=== PATIENT | male | born 1945 | race Caucasian/White ===

== ENCOUNTER → 2020-01-14 08:05 | Outpatient (BNVA) | payer MEDICARE, BC, SELFPAY | PROVIDERS: Family Provider Nurse Practitioner; PCP Nurse Practitioner; Visit Provider Specialist | DX: F90.9 Attention-deficit hyperactivity disorder, unspecified type (principal) | CPT/HCPCS: 99213 ==

== ENCOUNTER → 2020-07-12 11:02 | Outpatient (BNVA) | payer MEDICARE, BC, SELFPAY | PROVIDERS: Family Provider Nurse Practitioner; PCP Nurse Practitioner; Visit Provider Specialist | DX: R29.90 Unspecified symptoms and signs involving the nervous system (principal); F98.8 Other specified behavioral and emotional disorders with onset usually occurring in childhood and adolescence | CPT/HCPCS: 99213 ==

== ENCOUNTER 2021-09-15 06:41 | Emergency (ER) | payer MEDICARE, BC, SELFPAY ==
[2021-09-15 06:43] VITALS: BP 185/85; PULSE 85; RESP 16; TEMP 36.7; O2SAT 96; BMI 31.7
--- NOTE | 2021-09-15 06:47 | ED_ITS ---
HPI - Fall General: Chief Complaint: Fall Stated Complaint: FALL Time Seen by Provider: 09/15/21 06:45 History of Present Illness: HPI Narrative: 68-year-old male presents to the ER via EMS after a fall at home. Patient fell yesterday morning from a height of about 3 feet he landed on the edge of an object as he came down on his left side. He has right hip pain and low back pain. There is no loss of consciousness. He is not had any hematuria. He was ambulatory immediately after the fall he comes in today because the pain is worse. Has not really taken anything for it. He does occasionally use Tylenol and meloxicam.. Is also dextromethorphan for ADHD. MD complaint: fall Onset (ago): hour(s) Fall from: from height (distance) (3 ft) Fall witnessed: no Place fall occurred: home Loss of consciousness: None Prolonged down time: no Context: tripped/slipped Location of injury: back Location of injury - extremities: Left: thigh Severity: moderate Quality: aching Associated symptoms-after fall: Denies abdominal pain, chest pain, confusion, difficulty walking, headache(s), hematuria, lightheadedness, neck pain, numbness, short of breath, vertigo or weakness Review of Systems Const: Denies: fever(s), chills, body aches, change in appetite, fatigue or malaise ENMT: Denies: throat pain, ear or mastoid pain, nasal discharge or nasal congestion Card: Denies: chest pain or lightheadedness Resp: Denies: dyspnea, productive cough or non-productive cough GI: Denies: abdominal pain : Denies: hematuria Musc: Denies: neck pain Skin/Breast: Denies: rash or pruritus Neuro: Denies: headache(s), difficulty walking, vertigo or confusion PFSH ED PFSH: Family History Other Cancer Denies family history of Diabetes CAD (coronary artery disease) Hypertension Stroke Social History Smoking and tobacco status: never smoked Alcohol intake: current Alcohol intake frequency: few times a week History of recent travel: No Physical Exam Const: COMMON NORMALS: no acute distress GENERAL APPEARANCE: cooperative and comfortable ORIENTATION/CONSCIOUSNESS: Yes awake, Yes oriented to person, Yes oriented to place and Yes oriented to time HENMT: COMMON NORMALS: normocephalic, atraumatic and hearing grossly normal bilaterally HEAD & SCALP: normocephalic and atraumatic Neck/C-Spine: COMMON NORMALS: no JVD Resp: COMMON NORMALS: normal respiratory effort, No retractions, No use of accessory muscles and clear to auscultation bilaterally AUSCULTATION: clear to auscultation bilaterally Cardio: COMMON NORMALS: no JVD, regular rate, regular rhythm and No murmurs present (Cardio) RATE: regular rate RHYTHM: regular rhythm GI: COMMON NORMALS: Soft to palpation and No hepatosplenomegaly present AUSCULTATION: Yes normoactive bowel sounds PALPATION: Yes Soft to palpation, No Tenderness to palpation present (GI), No Guarding due to palpation present (GI) and Yes No hepatosplenomegaly present Extremity: COMMON NORMALS: normal to inspection, capillary refill normal, no clubbing, cyanosis or edema, no calf tenderness and no pedal edema Neuro: SENSORIUM/ORIENTATION: Yes oriented to person, Yes oriented to place and Yes oriented to time Skin: COMMON NORMALS: no rashes or lesions noted GENERAL SKIN EXAM: no rashes or lesions noted Course Vital Signs: Vital signs: Vital Signs Temperature 98.2 F 09/15/21 07:25 Pulse Rate 90 09/15/21 07:25 Respiratory Rate 16 09/15/21 09:04 Blood Pressure 185/85 09/15/21 07:25 Pulse Oximetry 96 09/15/21 09:04 MDM - Fall MDM Narrative: Medical decision making narrative: No fractures. Patient will have assessment by PT for ambulation gait and transfer. Discharge home with Bactrim for cystitis medications given for his back pain discomfort. Lab Data: Labs: Lab Results 09/15/21 09/15/21 09/15/21 06:47 06:47 07:10 WBC 14.7 10^3/uL H 10 ^3/uL (4.0-10.0) RBC 5.13 10^6/uL 10^6 /uL (4.1-5.3) Hgb 16.3 g/dL g/dL (11.7-16.6) Hct 45.3 % % (42.0-52.0) MCV 88.3 fl fl (80-94) MCH 31.8 pg pg (28.0-34.0) MCHC 36.0 g/dL g/dL (30.0-36.0) RDW 11.8 % L % (12.1-15.1) Plt Count 188 10^3/cmm 10^3 /cmm (130-400) MPV 8.9 fL fL (7.4-10.4) Neut % (Auto) 86.6 % % Lymph % (Auto) 6.0 % % [place] % (Auto) 6.2 % % Eos % (Auto) 0.3 % % Baso % (Auto) 0.5 % % Neut # (Auto) 12.73 10^3/uL H 1 0^3/uL (1.8-7.7) Lymph # (Auto) 0.9 10^3/uL 10^3/ uL (0.8-4.8) [place] # (Auto) 0.9 10^3/uL 10^3/ uL (0.2-0.9) Eos # (Auto) 0.0 10^3/uL 10^3/ uL (0.0-0.8) Baso # (Auto) 0.1 10^3/uL 10^3/ uL (0.0-0.1) Nucleated RBC % (a uto) 0 % % Nucleated RBCs # 0.0 /100WBC /100W BC Sodium 131 mmol/L L mmol /L (136-145) Potassium 3.8 mmol/L mmol/L (3.5-5.1) Chloride 96 mmol/L L mmol/ L (98-107) Carbon Dioxide 21 mmol/L L mmol/ L (22-29) Anion Gap 17.8 (5-19) BUN 14 mg/dL mg/dL (8-23) Creatinine 0.6 mg/dL L mg/dL (0.7-1.2) GFR Calculation Not Reportable Glucose 102 mg/dL mg/dL (65-115) Calculated Osmolal ity 273 mOsm/kg L mOs m/kg (285-295) Calcium 8.5 mg/dL mg/dL (8.5-10.5) Total Bilirubin 1.2 mg/dL mg/dL (0.15-1.2) AST 23 U/L U/L (0-40) ALT 34 U/L U/L (0-41) Alkaline Phosphata se 48 IU/L IU/L (40-130) Total Protein 6.8 g/dL g/dL (6.6-8.7) Albumin 4.3 g/dL g/dL (3.5-5.2) Globulin 2.5 g/dL g/dL (1.3-4.6) Urine Color Yellow (Yellow) Urine Appearance Sl hazy (CLEAR) Urine pH 7 (5-7) Ur Specific Gravit y 1.005 (1.005-1.030) Urine Protein Neg (Negative) Urine Glucose (UA) Norm (Normal) Urine Ketones Negative (Negative) Urine Blood 2+ H (Negative) Urine Nitrate Positive H (Negative) Urine Bilirubin Neg (Negative) Urine Urobilinogen Norm mg/dL mg/dL (Negative) Ur Leukocyte Dai ase 2+ H (Negative) Urine RBC 10-15 /hpf H /hpf (0-2) Urine WBC 55-80 /hpf H /hpf (0-5) Ur Squamous Epith Cells 0-4 /hpf H /hpf (0-5) Amorphous Sediment Not Reportable Urine Bacteria 2+ /hpf H /hpf (NONE) Urine Mucus Trace /hpf /hpf Discharge Plan Discharge Patient Disposition: Home Clinical Impression: Fall, Cystitis Condition: Stable Prescriptions: New Bactrim DS 800-160 mg tablet 1 tab PO DAILY 7 Days Qty: 14 RF: 0 hydrocodone-acetaminophen 5-325 mg tablet 1 tab PO Q6H PRN (Reason: pain) Qty: 15 RF: 0 Medrol (Adriel) 4 mg tablets,dose pack See Rx Instructions .ROUTE .COMPLEX Qty: 21 RF: 0 tizanidine 4 mg capsule 4 mg PO Q8H PRN (Reason: muscle spasticity) Qty: 20 RF: 0 No Action lisinopril 20 mg tablet 20 mg PO DAILY RF: 0 hydrochlorothiazide 50 mg tablet 50 mg PO DAILY RF: 0 triamcinolone acetonide 0.1 % cream 1 applic TOPICAL TID RF: 0 hydrocortisone acetate [Anusol-HC] 25 mg suppository 25 mg [place] DAILY PRNRF: 0 alprazolam 0.5 mg tablet 0.5 mg PO DAILY RF: 0 meloxicam 15 mg tablet 15 mg PO DAILY RF: 0 acetaminophen [Tylenol 8 Hour] 650 mg tablet extended release 650 mg PO Q12H RF: 0 miconazole nitrate 2 % aerosol,spray 1 spray TOPICAL DAILY PRNRF: 0 diphenhydramine HCl [Benadryl] 25 mg capsule 25 mg PO ONCE PRNRF: 0 clotrimazole 1 % cream 1 applic TOPICAL ONCE PRNRF: 0 diosmin 300 mg tablet 500 mg PO TID RF: 0 hesperidin-diosmin 100-500 mg tablet PO RF: 0 turmeric root extract 500 mg capsule See Rx Instructions PO DAILY RF: 0 multivitamin Capsule 1 cap PO DAILY RF: 0 psyllium husk 0.4 gram capsule 24 gm PO DAILY RF: 0 wheat bran 3 gram/9.3 gram powder 16 gm PO DAILY RF: 0 bran Flakes PO RF: 0 flaxseed Powder PO RF: 0 cholecalciferol (vitamin D3) [Vitamin D3] 25 mcg (1,000 unit) capsule 25 mcg PO DAILY RF: 0 cinnamon bark [Cinnamon] 500 mg capsule See Rx Instructions PO DAILY RF: 0 omega-3 fatty acids 1,000 mg capsule 1,000 mg PO DAILY RF: 0 melatonin 3 mg capsule 3 mg PO DAILY RF: 0 dextroamphetamine-amphetamine [Adderall] 20 mg tablet 20 mg PO BID 30 Days Qty: 60 RF: 0 citalopram 20 mg tablet See Rx Instructions .ROUTE .COMPLEX Qty: 90 RF: 3 Discharge Orders: Discharge ED (Routine); Ordered 09/15/21 Ordered By: Fredy Fofana Referrals: Akilah Mcgarry APN [Primary Care Provider] - Patient Instructions: Opioid Safety Coding Level of Care Code ED Instructor Warper for Maggieg Fwd Exam Comprehensive
--- NOTE | 2021-09-15 06:52 | CTR_ITS ---
PROCEDURE INFORMATION: Exam: CT Lumbar Spine Without Contrast Exam date and time: 09/15/2021 6:52 AM Age: 76 years old Clinical indication: Low back pain; Prior surgery; Surgery date: 6+ months; Additional info: Pain/trauma TECHNIQUE: Imaging protocol: Computed tomography images of the lumbar spine without contrast. Radiation optimization: All CT scans at this facility use at least one of these dose optimization techniques: automated exposure control; mA and/or kV adjustment per patient size (includes targeted exams where dose is matched to clinical indication); or iterative reconstruction. COMPARISON: No relevant prior studies available. RADIATION DOSE METRICS: Total DLP (mGy-cm): 2420.4 FINDINGS: Vertebrae: Mild leftward lower lumbar spinal curvature. Slight L1-L2 retrolisthesis, mild-moderate spondylosis. The L1-L2 AP thecal sac dimension is 8.3 mm. Mild L3-L4 retrolisthesis, moderate spondylosis., moderate spondylosis. Asymmetric left L5-S1 moderate spondylosis. Lumbar spine vertebral body marginal osteophytes are noted at multiple levels. No acute fracture. No destructive bony process identified. Discs/Spinal canal/Neural foramina: Left L1-L2 far lateral disc protrusion with possible L1 root impingement. Left L2-L3 far lateral disc protrusion with possible L2 root impingement. Severe L2-L3 spinal stenosis with moderate annular bulging. The L2-L3 AP thecal sac dimension is 4.9 mm. Severe L3-L4 spinal stenosis. Mild left L3-L4 primary facet osteoarthritis. Severe right predominant L3-L4 and L4-L5 degenerative disc narrowing. Moderate L4-L5 spinal stenosis. Moderate bilateral L4-L5 primary facet osteoarthritis. Severe lef-S1 t neural foraminal narrowing. Moderate left L5-S1 primary facet osteoarthritis. Severe left predominant L5-S1 degenerative disc narrowing. Prominent epidural adipose at levels L2-L3 through to L5-S1 (series 602, images 26 -30). Sacrum/coccyx: 7.7 mm probable bone island right S1 sacral centrum. Vasculature: Mild aortic atherosclerotic calcification without aneurysm. The iliac arteries show mild bilateral atherosclerotic calcifications without evidence of aneurysm. Soft tissues: Unremarkable. CT/CT lumbar spine wo con* [id number] IMPRESSION: 1. Left L1-L2 and L2-L3 far lateral disc protrusions with possible L1 and L2 root impingement. 2. Moderate L1-L2 and L4-L5 spinal stenoses. 3. Severe L2-L3 and L3-L4 spinal stenoses. 4. Epidural lipomatosis contributing to multilevel spinal stenosis. 5. Neural foraminal stenoses as above. Radiation Dose CTDIVOL = (mGy): DLP = 2420.4 (mGy-cm)
--- NOTE | 2021-09-15 06:52 | XR_ITS ---
WS: [id number] Exam: XR pelvis 1-2V* [id number] Date/Time of Exam: 09/15/2021 6:52 AM Reason For Exam: pain trauma No acute pelvic fracture. DJD of the both hips as well as the SI joints. Soft tissues are unremarkabl e. Advanced DJD and levoscoliosis of the visualized lower lumbar spine. XR/XR pelvis 1-2V* [id number] IMPRESSION: 1. No acute pelvic fracture. Degenerative changes as above.
[2021-09-15 07:03] LABS: Basophils # 0.1 10^3/uL (0.0-0.1); Basophils % 0.5 %; Eosinophils % 0.3 %; Hematocrit 45.3 % (42.0-52.0); Hemoglobin 16.3 g/dL (11.7-16.6); Lymphocytes # 0.9 10^3/uL (0.8-4.8); Mean Corpuscular Hemoglobin 31.8 pg (28.0-34.0); Mean Corpuscular Volume 88.3 fl (80-94); Mean Platelet Volume 8.9 fL (7.4-10.4); Monocytes # 0.9 10^3/uL (0.2-0.9); Monocytes % 6.2 %; Neutrophils # 12.73 10^3/uL (1.8-7.7); Neutrophils % 86.6 %; Nucleated Red Blood Cells % 0 %; Platelet Count 188 10^3/cmm (130-400); Red Blood Count 5.13 10^6/uL (4.1-5.3); Red Cell Distribution Width 11.8 % (12.1-15.1); White Blood Count 14.7 10^3/uL (4.0-10.0)
[2021-09-15 07:25] VITALS: BP 185/85; PULSE 90; RESP 16; TEMP 36.8; O2SAT 95
[2021-09-15 07:36] LABS: Alanine Aminotransferase 34 U/L (0-41); Albumin Level 4.3 g/dL (3.5-5.2); Alkaline Phosphatase 48 IU/L (40-130); Anion Gap 17.8 (5-19); Aspartate Amino Transferase 23 U/L (0-40); Blood Urea Nitrogen 14 mg/dL (8-23); Calcium 8.5 mg/dL (8.5-10.5); Carbon Dioxide 21 mmol/L (22-29); Chloride 96 mmol/L (98-107); Globulin 2.5 g/dL (1.3-4.6); Glucose 102 mg/dL (65-115); Osmolality Calculated 273 mOsm/kg (285-295); Potassium 3.8 mmol/L (3.5-5.1); Sodium 131 mmol/L (136-145); Total Bilirubin 1.2 mg/dL (0.15-1.2); Total Protein 6.8 g/dL (6.6-8.7)
[2021-09-15 07:57] LABS: Urine Appearance SL Hazy (CLEAR); Urine Color Yellow (Yellow)
[2021-09-15 07:58] LABS: Add Urine Culture? Yes; Add Urine Microscopic? YES; Bacteria Urine 2+ /hpf; Bilirubin Urine Neg (Negative); Blood Urine 2+ (Negative); Glucose Urine UA Norm (Normal); Ketones Urine Negative (Negative); Leukocyte Esterase Urine 2+ (Negative); Mucus Urine TRACE /hpf; Nitrate Urine Positive (Negative); Protein Urine Neg (Negative); Specific Gravity, Urine 1.005 (1.005-1.030); Squamous Epithelial Cell Urine 0-4 /hpf (0-5); Urobilinogen Urine Norm (Negative); WBC Urine 55-80 /hpf (0-5); pH Urine 7 (5-7)
[2021-09-15] MEDS: ketorolac 30 mg/mL INJ 15 MG IVP (08:12)
--- NOTE | 2021-09-15 08:14 | PC.NURSE ---
Pt c/o right hip and leg pain, rating the pain 8/10. Dr. Fofana advised, new verbal orders entered
[2021-09-15 09:04] VITALS: RESP 16; O2SAT 96
[2021-09-15] MEDS: dexamethasone 10 mg/mL INJ IVP (09:04)
[2021-09-15] MEDS: morphine 4 mg/mL SDV 1 mL IVP (09:04)
[2021-09-15] MEDS: orphenadrine 30 mg/mL Inj 2 mL 60 MG IVP (09:05)
== END 2021-09-15 09:46 | disposition home or self-care (01) ==
PROVIDERS: Emergency Provider Family Medicine; PCP Nurse Practitioner
DX: N30.90 Cystitis, unspecified without hematuria (principal); W17.89XA Other fall from one level to another, initial encounter
CPT/HCPCS: 72131; 72170; 80053; 81001; 85025; 87077; 87086; 87186; 96374; 96375; 99284; 99291; J1100; J1885; J2270; J2360

== ENCOUNTER 2021-09-16 06:54 | Inpatient (IN) | payer MEDICARE, BC, SELFPAY ==
[2021-09-16] VITALS (20 sets, daily range): BP systolic 102–167; BP diastolic 53–88; PULSE 75–98; RESP 16–20; TEMP 36.8–37.6; O2SAT 91–97; BMI 30.8
--- NOTE | 2021-09-16 | SCC_ITS ---
Procedure Done: 1. Bilateral L4/5 laminectomy with partial facetectomies 15.6 seconds of fluoroscopic guidance, for a cumulative dose of 7.70 mGy, was provided to Dr. Houser by the radiology department. C-arm images of the lumbar spine were saved for the patient's permanent record. [facility]
--- NOTE | 2021-09-16 07:07 | ED_ITS ---
HPI - Back Pain/Injury General: Chief Complaint: Fall Stated Complaint: FALL Time Seen by Provider: 09/16/21 06:55 History of Present Illness: HPI Narrative: 76-year-old male returns emergency room via EMS complaining of back pain. He was seen yesterday CT lumbar spine is done there is a lot of chronic issues with some stenosis and disc disease but there is no fractures. He returns today after having fallen at home when he got up to go to the bathroom. He is complaining mostly of leg pain now particularly on the right leg. He also reports reported loss of sensation in the leg numbness and pain in the perineal area particularly his right testicle and right inner thigh. He had not had any fecal incontinence or urinary retention, today he is complaining of having unexpectedly lost control of his bowels overnight and not being able to urinate. He did have a cystitis yesterday and he was started on oral antibiotics. He has not used any of the hydrocodone he was prescribed yesterday for pain control he has taken the steroids and the muscle relaxer. MD elicited complaint: back pain and fall Pertinent past history: recent trauma Onset (ago): day(s) Timing: constant Severity: moderate Similar Symptoms Previously: Yes Quality: sharp Location: lumbar spine Radiation: right leg below the knee Exacerbating factors: movement and walking Relieving factors: supine Context: trauma (3 foot fall from a ladder 3 to 4 days ago) Associated symptoms: Reports difficulty walking, fecal incontinence, numbness and other (Urinary retention); Deny abdominal pain, arthralgias, chills, change in bowel habits, dysuria, fatigue, fever(s), hematuria, myalgias, nausea, syncope, tingling/numbness/burning, urinary frequency, urinary urgency, vomiting or weakness Treatments prior to arrival: other medications (Steroids and muscle relaxers) Review of Systems Const: Denies: fever(s), chills or fatigue ENMT: Denies: throat pain, ear or mastoid pain, nasal discharge or nasal congestion Card: Denies: syncope Resp: Denies: dyspnea, productive cough or non-productive cough GI: Reports: fecal incontinence; Denies: abdominal pain, nausea, vomiting or change in bowel habits : Denies: dysuria, urinary urgency or hematuria Skin/Breast: Denies: rash or pruritus Neuro: Reports: difficulty walking PFSH ED PFSH: Medical History ADHD Bone spur of foot Hypertension Surgical History H/O hernia repair umbilical Family History Other Cancer Denies family history of Diabetes CAD (coronary artery disease) Hypertension Stroke Social History Smoking and tobacco status: never smoked Alcohol intake: current Alcohol intake frequency: few times a week History of recent travel: No Physical Exam Const: COMMON NORMALS: no acute distress GENERAL APPEARANCE: cooperative and comfortable ORIENTATION/CONSCIOUSNESS: Yes awake, Yes oriented to person, Yes oriented to place and Yes oriented to time HENMT: COMMON NORMALS: normocephalic, atraumatic and hearing grossly normal bilaterally HEAD & SCALP: normocephalic and atraumatic Neck/C-Spine: COMMON NORMALS: no JVD Resp: COMMON NORMALS: normal respiratory effort, No retractions, No use of accessory muscles and clear to auscultation bilaterally AUSCULTATION: clear to auscultation bilaterally Cardio: COMMON NORMALS: no JVD, regular rate, regular rhythm and No murmurs present (Cardio) RATE: regular rate RHYTHM: regular rhythm GI: COMMON NORMALS: Soft to palpation and No hepatosplenomegaly present AUSCULTATION: Yes normoactive bowel sounds PALPATION: Yes Soft to palpation, No Tenderness to palpation present (GI), No Guarding due to palpation present (GI) and Yes No hepatosplenomegaly present Extremity: COMMON NORMALS: normal to inspection, capillary refill normal, no clubbing, cyanosis or edema, no calf tenderness and no pedal edema Neuro: SENSORIUM/ORIENTATION: Yes oriented to person, Yes oriented to place and Yes oriented to time OTHER: Diminished patellar tendon reflexes bilaterally of +1 of 4. Loss of sensation in the L4-5 nerve root distribution on the right foot compared to the left. Skin: COMMON NORMALS: no rashes or lesions noted GENERAL SKIN EXAM: no rashes or lesions noted Course 2 Vital Signs: Vital signs: Vital Signs Temperature 97.5 F L 09/23/21 07:15 Pulse Rate 60 09/23/21 07:15 Respiratory Rate 16 09/23/21 07:15 Blood Pressure 182/75 09/23/21 07:15 Pulse Oximetry 95 09/23/21 07:15 MDM - Back Pain/Injury MDM Narrative: Medical decision making narrative: MRI of the lumbar spine done. Discussed with Dr. East. We will go ahead and admit also discussed with Dr. Houser. Feel the patient does have an acute cauda equina syndrome. Discharge Plan Discharge Patient Disposition: Admitted As Inpatient Admit Provider: Nima Houser Clinical Impression: Cauda equina injury without bone injury Condition: Stable Coding Level of Care Code ED Supervisor Color Paste Mixing for Chg Fwd Exam Comprehensive
--- NOTE | 2021-09-16 07:11 | MR_ITS ---
WS: [id number] MRI LUMBAR SPINE NONCONTRAST HISTORY: saddle parasthenia COMPARISON: CT lumbar spine 09/15/2021. TECHNIQUE: Sagittal and axial multisequence imaging is submitted. Advanced degenerative disc disease and osteophytosis throughout the cervical and thoracic spine with multilevel areas of central canal stenosis in the cervical spine including C3-4, C4-5 and C5-6. Mild degenerative LEFT scoliosis lumbar spine. Severe disc space narrowing throughout the lumbar spin e with osteophytes and disc bulging and facet arthritis. No acute fracture. Conus terminates normally at L1. Mild thickening of the nerve roots at the conus medullaris. The distal tip of the conus is poorly vis ualized due to thickening of the nerve roots and increased T2 signal at the L1 level. L1-L2: Diffuse annular disc bulging and osteophytic ridging. Loss of the normal CSF. There is increas ed epidural fat posteriorly. Severe central stenosis with moderate bilateral foraminal stenosis. L2-L3: Osteophytic ridging with annular disc bulging and severe ligamentum flavum and facet arthritis . Disc and osteophyte encroachment into the central canal and subarticular recesses. Thecal sac is be ing displaced to the LEFT. Severe central, bilateral subarticular recess and moderate foraminal steno sis. L3-L4: Essentially complete effacement of CSF. Epidural fat is present posteriorly. Disc and osteophy te encroachment into the thecal sac and subarticular recesses. Severe central, bilateral subarticular recess and foraminal stenosis. L4-L5: Marked osteophytic ridging with annular disc bulging. Severe central, bilateral subarticular r ecess and foraminal stenosis. Extensive bilateral subarticular recess stenosis. L5-S1: Marked osteophytic ridging and annular disc bulging with mild ligamentum flavum and facet arth ritis. Disc is contacting and displacing the S1 nerve roots bilaterally. Mild central with moderate t o severe bilateral subarticular recess and foraminal stenosis. Postcontrast imaging is also obtained. There is significant motion artifact but no evidence for disci tis or osteomyelitis. No mass identified. There is some very mild enhancement involving the nerve prem ts in the conus. Probably representing neuritis.
[2021-09-16] MEDS: ketorolac 30 mg/mL INJ IVP (07:35)
[2021-09-16] MEDS: orphenadrine 30 mg/mL Inj 2 mL 60 MG IVP (07:35)
[2021-09-16] MEDS: morphine 4 mg/mL SDV 1 mL IVP (07:35)
[2021-09-16] MEDS: gadobenate dimeglumine 20 mL vial IV (10:47)
--- NOTE | 2021-09-16 11:25 | PC.NURSE ---
pt to MRI at 1015, pt return from MRI at 1125
--- NOTE | 2021-09-16 13:28 | ANES.PREANE2 ---
Pre-Anesthetic Assessment Pre-Anesthetic Assessment: Height/Weight: Height 1.78 m Weight 97.522 kg Temp Resp BP Pulse Ox 98.8 F 17 102/53 96 09/16/21 07:00 09/16/21 07:39 09/16/21 07:39 09/16/21 07:39 Proposed Procedure: Operation Date: 09/16/21 14:25 Proposed Procedures p Lumbar Spine Decompression(Left) - Nima Houser DO Was Beta Karissa taken within 24 hours: N/A Was Clonidine taken within 24 hours: N/A Social: Social History: No alcohol and No tobacco Exam: Pre-Anes Outpt Exam: alert, oriented x 3, clear to auscultation bilaterally and regular rate & rhythm Airway: Submandibular: WNL Cervical ROM: WNL MP: 2 Dentition: Caps Additional comments: Cordero CV/HEM: CV/HEM: HTN Musc/skel: Musc/skel: OA/DJD Anesthetic Plan: ASA status: 3E Anesthesia: General Risk of > 500 ml blood loss (7ml/kg in children): No PFSH Anesthesia PFSH: Family History Other Cancer Denies family history of Diabetes CAD (coronary artery disease) Hypertension Stroke Social History Smoking and tobacco status: never smoked Alcohol intake: current Alcohol intake frequency: few times a week History of recent travel: No Data Anesthesia Cardiac Studies: No Data to Display
[2021-09-16] MEDS: HYDROmorphone 1 mg/mL INJ 1 mL 0.5 MG IVP (14:09)
[2021-09-16] MEDS: sodium chloride 0.9% 1,000 ML 30 ML IV (14:15)
--- NOTE | 2021-09-16 14:24 | P.HP_ITS ---
Providers/Chief Complaint Primary Care Provider: Akilah Mcgarry APN Chief Complaint: FALL History of Present Illness Gómez Stevens is a 76 year old male all at home. Patient fell yesterday morning from a height of about 3 feet he landed on the edge of an object as he came down on his left side. He has right hip pain and low back pain. There is no loss of consciousness. Unable to control his bladder cant dorsiflex his ankles. Numbness in perirectal area and lateral legs Review of Systems Const: Denies: fever(s), chills or fatigue Eyes: Denies: photophobia ENMT: Denies: throat pain, ear or mastoid pain, nasal discharge or nasal congestion Card: Denies: syncope Resp: Denies: dyspnea, productive cough or non-productive cough GI: Denies: abdominal pain, nausea, vomiting, fecal incontinence or change in bowel habits : Denies: dysuria, urinary urgency or hematuria Skin/Breast: Denies: rash or pruritus Neuro: Reports: difficulty walking Medications/Allergies Home Medications Medication Instructions Recorded Confirmed Last Taken Type acetaminophen 650 mg 1,300 mg PO BEDTIME 01/14/20 09/16/21 Unknown History tablet,extended release cholecalciferol (vitamin D3) 25 25 mcg PO DAILY 01/14/20 09/16/21 09/15/21 History mcg (1,000 unit) capsule cinnamon bark 500 mg capsule 1,000 mg PO DAILY 01/14/20 09/16/21 Unknown History flaxseed See Rx Instructions .ROUTE .COMPLEX 01/14/20 09/16/21 Unknown History hesperidin-diosmin 100 mg-500 mg 1 tab PO BID 01/14/20 09/16/21 Unknown History tablet hydrochlorothiazide 50 mg tablet 50 mg PO QAM 01/14/20 09/16/21 09/16/21 05:15 History lisinopril 20 mg tablet 20 mg PO QAM 01/14/20 09/16/21 09/16/21 05:15 History meloxicam 15 mg tablet 15 mg PO QAM 01/14/20 09/16/21 09/15/21 History miconazole nitrate 2 % topical 1 spray TOPICAL DAILY PRN 01/14/20 09/16/21 Unknown History spray psyllium husk 0.4 gram capsule 24 gm PO DAILY cap 01/14/20 09/16/21 Unknown History triamcinolone acetonide 0.1 % 1 applic TOPICAL TID PRN 01/14/20 09/16/21 Unknown History topical cream wheat bran 3 gram/9.3 gram oral 16 gm PO DAILY 01/14/20 09/16/21 09/15/21 History powder hydrocodone-acetaminophen 1 tab PO Q6H PRN #15 tab 09/15/21 09/16/21 Unknown Rx methylprednisolone [Medrol (Adriel)] See Rx Instructions .ROUTE 09/15/21 09/16/21 09/16/21 Rx .COMPLEX #21 each sulfamethoxazole-trimethoprim 1 tab PO DAILY 7 Days #14 tab 09/15/21 09/16/21 09/16/21 05:15 Rx [Bactrim DS] tizanidine 4 mg PO Q8H PRN #20 cap 09/15/21 09/16/21 09/16/21 05:15 Rx bran [Oat Bran] See Rx Instructions .ROUTE .COMPLEX 09/16/21 09/16/21 Unknown History citalopram 20 mg PO BEDTIME 09/16/21 09/16/21 09/15/21 History multivitamin 1 tab PO DAILY 09/16/21 09/16/21 Unknown History oxycodone-acetaminophen [Percocet] 1 tab PO ONCE 09/16/21 09/16/21 09/16/21 History Allergies Allergy/AdvReac Type Severity Reaction Status Date / Time ciprofloxacin Allergy nausea, Verified 07/12/20 11:10 swelling cefuroxime [From Zinacef] AdvReac flushing Verified 07/12/20 11:10 hydroxyzine AdvReac muscle Verified 07/12/20 11:10 weakness latex AdvReac rash Verified 07/12/20 11:10 PFSH Acute PFSH: Family History Other Cancer Denies family history of Diabetes CAD (coronary artery disease) Hypertension Stroke Social History Smoking and tobacco status: never smoked Alcohol intake: current Alcohol intake frequency: few times a week History of recent travel: No Vitals/I&O/Wt Last Vital Signs Temp 99.3 F 09/16/21 13:30 Pulse 75 09/16/21 13:30 Resp 18 09/16/21 14:09 BP 156/78 09/16/21 13:30 Pulse Ox 94 09/16/21 14:09 Weight last 48 hrs Weight 215 lb Weight 215 lb Physical Exam Narrative: EXAM NARRATIVE: CONSTITUTIONAL: The patient is a normal appearing in no apparent distress. GENERAL: Patient in no acute distress. CARDIAC: Regular rate and rhythm. CHEST: Normal inspiratory effort, normal respiratory rate. ABDOMEN: Soft and nontender. SKIN: Clear, warm and intact. NEURO?PSYCH: The patient is alert and oriented to person, place and time. Sensorv /SILT Motor StrengthShoulder abduction C5 5/5Wrist extension C6 5/5Elbow extension C7 5/5Hand Paint Laboratory Technician C8 5/5Finger abduction T15/5 Radial/ Ulnar/ Median n intact LowerSensory (SILT)Motor StrengthHin flexion L2/3Ant/inner thigh 5/5Hip adduction L2/3 5/5Knee extension L4 Lat thigh, 5/5Toe dorsiflexion L5 5/5Ankle dorsiflexion L5/ O20Lxnqrrk flexion S1 5/5 DTRBleeps 2+Triceps 2+Brachioradialis 2+Patellar 2+Achilles 2+ unable to dorsiflex ankles MUSCULOSKELETAL: [] UPPEREXTREMITIES: The patient had full active ROM in fingers, wrist, elbow, and shoulder. The patient demonstrated ability to fully flex/extend/abduct/adduct fingers, make ok sign, cross 2nd/3rd digits, extend 1st digit fully.. Radial pulse 2+, CR<2 seconds. LOWER EXTREMITIES: Pt has full, active ROM of toes, ankle, knee, and hip. Dorsalis pedis/posterior tibialis pulses 2+, CR<2 seconds. SPINE: Skin warm, dry, intact. 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
[2021-09-16] MEDS: clindamycin 900 MG/50 ML PREMIX 100 MG IV (15:06)
--- NOTE | 2021-09-16 15:19 | P.CONIM_ITS ---
Providers/Reason For Consult Consulting Physician/Specialty*: Hospitalist service Reason for Consult*: Perioperative management Attending Physician: Nima Houser DO Primary Care Provider: Akilah Mcgarry APN History of Present Illness History of Present Illness Gómez Stevens is a 76 year old male who carries history of ADHD, hypertension without significant past surgical history presented to the hospital after sustaining a fall. Patient stating that he was working in his garage when he was trying to pull out an object on a shelf. He was on a 2 step ladder when he lost his balance fell on the ground and hit the side of the tub which was landing on the ground. He immediately started having back pain. He thought he suffered from a hip fracture. He was evaluated in the ER next day however after work-up in the ER he was discharged home. As soon as he went home he start experiencing bowel incontinence, right-sided leg weakness that prompted his visit to the ER next day. He was taken to the OR for spinal cord decompression. No perioperative complication, he will finish 1 day on steroids, will need PT evaluation Review of Systems Const: Denies: fever(s) Eyes: Denies: change in vision ENMT: Denies: throat pain Card: Denies: chest pain Resp: Denies: dyspnea GI: Denies: abdominal pain : Denies: flank pain Musc: Reports: back pain and limited range of motion Skin/Breast: Denies: striae Neuro: Reports: weakness in extremities and difficulty walking; Denies: headache(s) Psych: Denies: anxiety Endo: Denies: polyuria Venkat/Lymph: Denies: easy bruising All/Imm: Denies: urticaria Meds/Allergies Home Medications and Allergies Home Medications Medication Instructions Recorded Confirmed Last Taken Type acetaminophen 650 mg 1,300 mg PO BEDTIME 01/14/20 09/16/21 Unknown History tablet,extended release cholecalciferol (vitamin D3) 25 25 mcg PO DAILY 01/14/20 09/16/21 09/15/21 History mcg (1,000 unit) capsule cinnamon bark 500 mg capsule 1,000 mg PO DAILY 01/14/20 09/16/21 Unknown History flaxseed See Rx Instructions .ROUTE .COMPLEX 01/14/20 09/16/21 Unknown History hesperidin-diosmin 100 mg-500 mg 1 tab PO BID 01/14/20 09/16/21 Unknown History tablet hydrochlorothiazide 50 mg tablet 50 mg PO QAM 01/14/20 09/16/21 09/16/21 05:15 History lisinopril 20 mg tablet 20 mg PO QAM 01/14/20 09/16/21 09/16/21 05:15 History meloxicam 15 mg tablet 15 mg PO QAM 01/14/20 09/16/21 09/15/21 History miconazole nitrate 2 % topical 1 spray TOPICAL DAILY PRN 01/14/20 09/16/21 Unknown History spray psyllium husk 0.4 gram capsule 24 gm PO DAILY cap 01/14/20 09/16/21 Unknown History triamcinolone acetonide 0.1 % 1 applic TOPICAL TID PRN 01/14/20 09/16/21 Unknown History topical cream wheat bran 3 gram/9.3 gram oral 16 gm PO DAILY 01/14/20 09/16/21 09/15/21 History powder hydrocodone-acetaminophen 1 tab PO Q6H PRN #15 tab 09/15/21 09/16/21 Unknown Rx methylprednisolone [Medrol (Adriel)] See Rx Instructions .ROUTE 09/15/21 09/16/21 09/16/21 Rx .COMPLEX #21 each sulfamethoxazole-trimethoprim 1 tab PO DAILY 7 Days #14 tab 09/15/21 09/16/21 09/16/21 05:15 Rx [Bactrim DS] tizanidine 4 mg PO Q8H PRN #20 cap 09/15/21 09/16/21 09/16/21 05:15 Rx bran [Oat Bran] See Rx Instructions .ROUTE .COMPLEX 09/16/21 09/16/21 Unknown History citalopram 20 mg PO BEDTIME 09/16/21 09/16/21 09/15/21 History multivitamin 1 tab PO DAILY 09/16/21 09/16/21 Unknown History oxycodone-acetaminophen [Percocet] 1 tab PO ONCE 09/16/21 09/16/21 09/16/21 History Allergies Allergy/AdvReac Type Severity Reaction Status Date / Time ciprofloxacin Allergy nausea, Verified 07/12/20 11:10 swelling cefuroxime [From Zinacef] AdvReac flushing Verified 07/12/20 11:10 hydroxyzine AdvReac muscle Verified 07/12/20 11:10 weakness latex AdvReac rash Verified 07/12/20 11:10 Current Medications Current Medications Generic Name Dose Route Start Last Admin Trade Name Rafat PRN Reason Stop Dose Admin Hydromorphone HCl 0.5 mg 09/16/21 13:20 09/16/21 14:09 Hydromorphone 1 Mg/Ml Inj 1 Ml IVP 09/17/21 13:20 0.5 mg ONCE PRN Administration Pain or anxiety Sodium Chloride 1,000 mls @ 30 mls/hr 09/16/21 13:30 09/16/21 14:15 Sodium Chloride 0.9% IV 09/17/21 13:29 30 mls/hr .Q24H ISSAC Administration PFSH Acute PFSH: Medical History ADHD Bone spur of foot Hypertension Surgical History H/O hernia repair umbilical Family History Other Cancer Denies family history of Diabetes CAD (coronary artery disease) Hypertension Stroke Social History Smoking and tobacco status: never smoked Alcohol intake: current Alcohol intake frequency: few times a week History of recent travel: No Vitals/I&O/Wt Last Vital Signs Temp 99.3 F 09/16/21 13:30 Pulse 75 09/16/21 13:30 Resp 18 09/16/21 14:09 BP 156/78 09/16/21 13:30 Pulse Ox 94 09/16/21 14:09 Weight last 48 hrs Weight 97.522 kg Weight 97.522 kg Physical Exam Narrative: EXAM NARRATIVE: Postoperatively patient was doing well Martinez catheter draining urine Awake and alert Nonfocal neuro exam Able to wiggle his toes Moving upper and lower extremities No further bowel incontinence Saturating well No active shortness of breath or chest pain S1, S2 Bilateral breath sounds without audible stridor or wheezing Urinary Catheter Management^: Martinez: Cath Placed During This Visit: yes Urinary Catheter Date of Insertion: 09/16/21 Urinary Catheter Time of Insertion: 12:30 A&P Assessment and plan (1) S/P laminectomy: Status: Acute (2) Cystitis: Status: Acute (3) Fall: Status: Acute (4) Cauda equina injury without bone injury: Status: Acute Additional A&P Information Cauda equina syndrome after sustaining a fall Postop day 0 Bilateral L4/5 laminectomy with partial facetectomies No complications in the perioperative period Continue 24 hours on Decadron Patient is able to move his lower extremities, no rectal incontinence Depending on PT evaluation further plan will be decided by the primary orthopedic team Hospitalist team was consulted for management of hypertension, DVT prophylaxis as per orthopedics Regular diet Full code We will follow along Consult Attestations Medical Necessity Statement: As per orthopedics Time Spent in Patient Care: 16 - 35 minutes Coding 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
--- NOTE | 2021-09-16 16:44 | XR_ITS ---
WS: [id number] RADIOGRAPHS SPINE; 2 IMAGES HISTORY: OR PICS COMPARISON: 09/16/2021 Intraoperative imaging during spine decompression. Hardware appears to be over the L3-4 or L4-5 disc level. XR/XR lumbar spine 1V [id number] IMPRESSION: Intraoperative imaging during spine decompression.
--- NOTE | 2021-09-16 17:16 | P.OP_ITS ---
Operative Report Date of procedure: September 16, 2021 Pre-op Diagnosis: Cauda Equina Syndrome Post-op diagnosis: same Procedure Done: 1. Bilateral L4/5 laminectomy with partial facetectomies Surgeon: Nima Houser Anesthesia: General Estimated blood loss (mL): 10 Condition: stable Disposition: PACU Procedure: 1. Bilateral L4/5 laminectomy with partial facetectomies Patient is brought to the operative suite. After undergoing anesthesia they are placed in the prone position. All areas of impingement are well padded. Patient is then prepped and draped in the normal sterile fashion. A skin incision is made over the L4/5 level. This is confirmed under c-arm guidance. A series of dilators are passed and the tubular retractor is docked on the L4 lamina. A bovie is used to clear the soft tissue off the lamina and the L 4/5 facet joint. A high speed rubi is then used to perform the laminectomy and take down the medial aspect of the L 4/5 facet joint. A kerrison rongeure was then used to take down the remaining lamina and smooth the edged of the laminectomy up to the point where the ligamentum flavum attaches. Attention was then brought to the medial aspect of the facet joint. The remaining medial aspect of the superior and inferior aspect of the facet joint were taken down with the kerrison from the pedicle of L4 to L 5. The facet joint had significant hypertrophy. Attention was then brought to the Ligamentum Flavum. The ligament was taken down from the lamina of L4 to L5 and out medially to the remaining facet joint. The ligament was thick. The dura was then exposed. The dura was in good repair. The L4 nerve was then traced with a curette out the L4/5 foramen and found to be adequately decompressed. The L5 nerve was traced with a curette around the L5 pedicle. The lateral recess was opened with a kerrison helping to further decompress the L5 nerve. The tubular retractor was then tilted to the contralateral side. The bovie was used to take down the soft tissue on the spinous process. The high speed rubi was used to take down the spinous process and then the contralateral lamina of L4. The kerrison rongeur was used to take down the remaining lamina to the point where the ligamentum flavum attached and the ligamentum flavum was taken down from L4 to L5. The kerrison rongeur was then used to reach across and take down the medial aspect of the contralateral L4/5 facet joint.The currete was used to trace the contralateral L4 nerve out the L4/5 foramen to make sure it was decompressed adequatesly and the L5 was traced around the L5 pedicle. The lateral recess was opened further with the kerrison to ensure the L5 is ad equately decompressed. Wound is then irrigated copiously with saline and surgiflo is used to stop any bleeding. The tubular retractor is removed and the wound is closed with vicryl and monocryl suture. Glue is then used to protect the wound. A sterile dressing is then placed. Patient was then placed in the supine position and transferred to the PACU in stable condition.
--- NOTE | 2021-09-16 17:18 | ANE.PACU2 ---
Inpatient post-anesthesia follow up: Airway intact: Yes Vital signs: Temperature 99.3 F Pulse Rate 75 Respiratory Rate 18 Blood Pressure 156/78 Pulse Oximetry 94 Oxygen Delivery Me thod Room Air Oxygen Flow Rate Fraction of Inspir ed Oxygen Hydration adequate: Yes Nausea and vomiting: No Pain level: 2 Mental status: Baseline
[2021-09-16] MEDS: docusate sodium 100 mg Capsule PO (19:05)
[2021-09-16] MEDS: lactated ringers 1,000 ML 90 ML IV (19:06)
[2021-09-16] MEDS: dexamethasone 10 mg/mL INJ IVP (19:06)
[2021-09-16] MEDS: oxyCODONE-APAP 5-325 mg Tablet 1 TAB PO (20:55)
[2021-09-16] MEDS: citalopram 20 mg Tablet PO (20:56)
[2021-09-17] VITALS (8 sets, daily range): BP systolic 119–138; BP diastolic 56–68; PULSE 74–88; RESP 17–18; TEMP 36.2–36.8; O2SAT 90–94
[2021-09-17] MEDS: dexamethasone 10 mg/mL INJ IVP ×5 (00:04→23:46)
[2021-09-17] MEDS: HYDROcodone-acetaminophen 5-325 mg Tablet 1 TAB PO ×2 (06:12→12:26)
[2021-09-17] MEDS: lisinopril 20 mg Tablet PO (06:12)
[2021-09-17] MEDS: lactated ringers 1,000 ML 90 ML IV (06:13)
[2021-09-17] MEDS: enoxaparin 40 mg/0.4 mL Syringe SUBCUT (06:13)
--- NOTE | 2021-09-17 07:26 | P.PN_ITS ---
Subjective Subjective: Interval history: Patient reports back pain has improved. Some weakness and pain in Legs but much improved as well. Denies GOODEN,CP or SOB Vitals/I&O/Wt Last Vital Signs Temp 98.1 F 09/17/21 07:21 Pulse 83 09/17/21 07:21 Resp 18 09/17/21 07:21 BP 138/61 09/17/21 07:21 Pulse Ox 93 09/17/21 07:21 09/16/21 09/17/21 09/17/21 22:59 06:59 14:59 Intake Total 2250 / 2250 1000 / 3250 Output Total 1210 / 1210 Balance 1040 / 1040 1000 / 2040 Weight last 48 hrs Weight 215 lb Weight 215 lb Physical Exam Narrative: EXAM NARRATIVE: Patient presents alert and oriented x3 with a good general appearance normal normal affect. Mild tenderness around the incisional site with the incision appear to be C/D. No signs of erythema or drainage. 4/5 motor strength both lower extremities with weaker with dorsiflexion bilaterally. Calves are supple no medial thigh tenderness. Pulses are 1+ at the dorsalis pedis and posterior tibial region. Good capillary refill throughout appears to have good sensation with light touch both lower extremities. GI: COMMON NORMALS: Soft to palpation and non-tender PALPATION: Yes Soft to palpation Psych: COMMON NORMALS: cooperative Urinary Catheter Management^: Martinez: Cath Placed During This Visit: yes Reason for Continuing Indwelling Catheter: Other Urinary Catheter Date of Insertion: 09/16/21 Urinary Catheter Time of Insertion: 12:30 A&P Assessment and plan (1) Cauda equina injury without bone injury: Patient was inquiring about discharge but based on the incontinence that he reported on admission as well as weakness in both lower extremities I would recommend physical therapy evaluation today. He will need a walker for stability. Discussed with the nurse of discontinuing Martinez catheter but will put an order in for straight cath and bladder scan as needed if he is unable to void. Also discussed laxative of choice to help with bowel movements. En couraged SMI for pulmonary toilet. Discussed at length with him the nerve recovery is slow to become hypersensitive as that healing process unfolds. He does live with his the need to establish his level of stability prior to discharge and would not recommend discharge today. Plan will be greater than 2 days for his hospitalization. If he is not able to progress with stability, I would recommend consultation with clinical social work aide for placement to rehab prior to discharge home. Status: Acute (2) S/P laminectomy: Status: Acute Attestations Medical Necessity Statement*: Based on his cauda equina presentation and continued weakness and urinary incontinence with recommend greater than 2 days hospitalization. We will make attempts to discontinue his Martinez catheter. 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
[2021-09-17] MEDS: docusate sodium 100 mg Capsule PO ×2 (08:31→17:21)
[2021-09-17] MEDS: meloxicam 7.5 mg tablet 15 MG PO (08:31)
[2021-09-17] MEDS: hydroCHLOROthiazide 25 mg Tablet 50 MG PO (08:31)
[2021-09-17] MEDS: sulfamethoxazole-trimeth DS 160-800 mg Tablet 1 TAB PO (08:32)
[2021-09-17] MEDS: morphine 4 mg/mL SDV 1 mL IVP (17:21)
[2021-09-17] MEDS: ketorolac 30 mg/mL INJ IVP (17:22)
[2021-09-17] MEDS: ondansetron 2 mg/ML SDV 2 mL 4 MG IVP (17:22)
--- NOTE | 2021-09-17 17:34 | PM.MISC ---
Miscellaneous Note Note: No overnight events Did well with physical therapy Normotensive Patient is able to move all of his extremities Martinez catheter draining concentrated urine Awake and alert Able to move his upper and lower extremities Nonfocal neuro exam S1, S2 sinus rhythm No audible stridor or wheezing Abdomen soft Pleasant and cooperative during my evaluation Patient has remained normotensive, no fever, no postoperative complications, doing well on room air Agree with voiding trial, date of Advil physical therapy, further disposition plan as per primary orthopedic team DVT prophylaxis as per orthopedics Urine culture positive for staph aureus, this is not a common UTI microorganism, would repeat urine analysis with culture, will get blood cultures to rule out bacteremia Patient has remained afebrile, leukocytosis which could be secondary to Decadron If repeat urine culture shows staph aureus again, nidus of infection needs to be explored, hold off on MRSA antibiotics for now
[2021-09-17 20:03] LABS: Add Urine Microscopic? YES; Bilirubin Urine Neg (Negative); Blood Urine 2+ (Negative); Glucose Urine UA Norm (Normal); Ketones Urine Negative (Negative); Leukocyte Esterase Urine Negative (Negative); Nitrate Urine Negative (Negative); Protein Urine Neg (Negative); Specific Gravity, Urine 1.015 (1.005-1.030); Urine Appearance Clear (CLEAR); Urine Color Yellow (Yellow); Urobilinogen Urine Norm (Negative); pH Urine 6 (5-7)
[2021-09-17 20:05] LABS: Add Urine Culture? No; Amorphous Sediment Urine TRACE /hpf; Bacteria Urine TRACE /hpf; Mucus Urine TRACE /hpf; Squamous Epithelial Cell Urine 0-4 /hpf (0-5); WBC Urine 0-4 /hpf (0-5)
[2021-09-17 20:14] LABS: Procalcitonin 0.84 ng/mL (0-0.5)
[2021-09-17] MEDS: citalopram 20 mg Tablet PO (21:26)
[2021-09-18] VITALS: BP 129/63; PULSE 70; RESP 17; TEMP 36.9; O2SAT 95
[2021-09-18 04:00] VITALS: BP 149/71; PULSE 72; RESP 17; TEMP 36.6; O2SAT 96
[2021-09-18 05:30] LABS: Basophils % 0.1 %; Hematocrit 38.4 % (42.0-52.0); Hemoglobin 13.2 g/dL (11.7-16.6); Lymphocytes # 0.8 10^3/uL (0.8-4.8); Lymphocytes % 5.7 %; Mean Corpuscular HGB Conc 34.4 g/dL (30.0-36.0); Mean Corpuscular Hemoglobin 31.9 pg (28.0-34.0); Mean Corpuscular Volume 92.8 fl (80-94); Mean Platelet Volume 9.5 fL (7.4-10.4); Monocytes # 0.6 10^3/uL (0.2-0.9); Monocytes % 4.3 %; Neutrophils # 12.23 10^3/uL (1.8-7.7); Neutrophils % 88.6 %; Nucleated Red Blood Cells % 0 %; Platelet Count 161 10^3/cmm (130-400); Red Blood Count 4.14 10^6/uL (4.1-5.3); Red Cell Distribution Width 12.2 % (12.1-15.1); White Blood Count 13.8 10^3/uL (4.0-10.0)
[2021-09-18 05:35] LABS: Anion Gap 14.7 (5-19); Blood Urea Nitrogen 31 mg/dL (8-23); C Reactive Protein 7.3 mg/L (0.0-4.9); Carbon Dioxide 23 mmol/L (22-29); Chloride 100 mmol/L (98-107); Glucose 151 mg/dL (65-115); Osmolality Calculated 285 mOsm/kg (285-295); Potassium 4.7 mmol/L (3.5-5.1); Sodium 133 mmol/L (136-145)
[2021-09-18] MEDS: dexamethasone 10 mg/mL INJ IVP ×4 (05:36→22:19)
[2021-09-18] MEDS: lisinopril 20 mg Tablet PO (06:29)
[2021-09-18] MEDS: enoxaparin 40 mg/0.4 mL Syringe SUBCUT (06:29)
[2021-09-18 07:48] VITALS: BP 155/68; PULSE 65; RESP 17; TEMP 36.4; O2SAT 91
[2021-09-18] MEDS: docusate sodium 100 mg Capsule PO ×2 (07:59→16:43)
[2021-09-18] MEDS: HYDROcodone-acetaminophen 5-325 mg Tablet 1 TAB PO ×2 (07:59→20:59)
[2021-09-18] MEDS: sulfamethoxazole-trimeth DS 160-800 mg Tablet 1 TAB PO (07:59)
[2021-09-18] MEDS: meloxicam 7.5 mg tablet 15 MG PO (07:59)
--- NOTE | 2021-09-18 08:27 | P.PN_ITS ---
Subjective Subjective: Interval history: POD 2 Patient is up in the chair comfortable. He has been up with physical therapy yesterday with weakness in both legs with right greater than left. He has not had a BM. He is unable to void. Vitals/I&O/Wt Last Vital Signs Temp 97.5 F L 09/18/21 07:48 Pulse 65 09/18/21 07:48 Resp 17 09/18/21 07:48 BP 155/68 09/18/21 07:48 Pulse Ox 91 09/18/21 07:48 09/17/21 09/18/21 09/18/21 22:59 06:59 14:59 Intake Total 1200 / 1440 240 / 1680 Balance 1200 / -660 240 / -420 Weight last 48 hrs Weight 215 lb Physical Exam Narrative: EXAM NARRATIVE: He is alert oriented x3 he has good general appearance normal mood and normal affect. He has decreased sensation diffusely down both lower extremities he can wiggle his toes. Is weak with dorsiflexion, 4/5 bilaterally 5/5 with plantar flexion bilaterally. calves are supple no medial thigh tenderness. Incision has bloody discharge around the dressing. Dressing was changed and applied a new Silverlon dressing. Wound appears to be healing nicely with no signs of infection. Resp: COMMON NORMALS: normal respiratory effort GI: COMMON NORMALS: non-tender INSPECTION: Yes abdominal distension PALPATION: Yes Firmness to palpation present (GI) Psych: COMMON NORMALS: cooperative Urinary Catheter Management^: Martinez: Cath Placed During This Visit: yes, but has since been removed by the nurse Reason for Continuing Indwelling Catheter: Decision to DC Catheter Urinary Catheter Date of Insertion: 09/16/21 Urinary Catheter Time of Insertion: 12:30 Date Urinary Catheter Removed: 09/17/21 Time Urinary Catheter Discontinued: 13:00 Data : 09/18/21 04:50 09/18/21 04:50 Micro: Microbiology 09/18/21 04:50 Blood Culture - Preliminary Blood SPECIMEN COLLECTED 09/17/21 19:19 Blood Culture - Preliminary Blood SPECIMEN COLLECTED A&P Assessment and plan (1) Cauda equina injury without bone injury: Would recommend laxative choice with suppository and/or mag citrate to help with BM. His bladder scan showed 700 mL this a.m. so we will reinsert the Martinez catheter. He has high risk of bleeding so would not recommend anticoagulants but continue with SCDs for mechanical DVT prophylaxis. We will encourage incentive spirometry for pulmonary toilet. Will recommend consultation with social and political studies professor for placement to rehab facility. Will defer to the medical team for consideration of Flomax for his urinary retention. Status: Acute (2) Urine retention: Status: Acute Attestations Medical Necessity Statement*: No discharge today due to urine retention lack of a BM and bilateral lower extremity weakness. Will consult social and political studies professor for recommendation of rehab facility on Sunday. 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
[2021-09-18] MEDS: sennosides-docusate Tablet 1 TAB PO ×2 (11:12→16:43)
[2021-09-18] MEDS: tamsulosin 0.4 mg Capsule PO (11:12)
[2021-09-18] MEDS: bisacodyl 10 mg Supp PR (11:13)
[2021-09-18 11:42] VITALS: BP 152/71; PULSE 70; RESP 17; TEMP 36.6; O2SAT 94
[2021-09-18 15:04] VITALS: BP 166/72; PULSE 72; RESP 17; TEMP 36.6; O2SAT 94
[2021-09-18 20:00] VITALS: BP 166/79; PULSE 106; RESP 22; TEMP 36.9; O2SAT 93
[2021-09-18] MEDS: citalopram 20 mg Tablet PO (20:59)
[2021-09-19] VITALS: BP 146/68; PULSE 66; RESP 16; TEMP 36.6; O2SAT 92
[2021-09-19 04:00] VITALS: BP 153/72; PULSE 72; RESP 18; TEMP 37.1; O2SAT 92
[2021-09-19] MEDS: lisinopril 20 mg Tablet PO (05:22)
[2021-09-19] MEDS: enoxaparin 40 mg/0.4 mL Syringe SUBCUT (05:22)
[2021-09-19] MEDS: dexamethasone 10 mg/mL INJ IVP ×4 (05:22→22:23)
--- NOTE | 2021-09-19 07:11 | P.PN_ITS ---
Documented by User: CALOS Smith 09/19/21 07:17 Subjective Subjective: Interval history: POD 3 Patient resting comfortably in bed. He reports having a bowel movement yesterday. He reports ambulating with a walker but is weak on the right side. He reports a slip and fall in the restroom but does not report any increased back pain or lower extremity pain. He is inquiring about going home. He denies any fevers chills or headaches, SOB. Vitals/I&O/Wt Last Vital Signs Temp 98.8 F 09/19/21 04:00 Pulse 72 09/19/21 04:00 Resp 18 09/19/21 04:00 BP 153/72 09/19/21 04:00 Pulse Ox 92 09/19/21 04:00 09/18/21 09/19/21 09/19/21 22:59 06:59 14:59 Intake Total 120 / 840 Output Total 1200 / 1200 900 / 2100 Balance -1080 / -360 -900 / -1260 Physical Exam Narrative: EXAM NARRATIVE: Patient presents alert and oriented x3 with a good general appearance normal normal affect. Normal coordination normal stability. Mild tenderness around the incisional site with the incision appear to be healing nicely. No signs of erythema or drainage. No signs of infection. Patient denies any fevers or chills. 4/5 motor strength in right lower extremities 5/5 strength in the left lower extremity with negative straight leg raise bilaterally. Weaker with dorsiflexion on the right worse than left. Calv es are supple no medial thigh tenderness. Pulses are 2+ at the dorsalis pedis and posterior tibial region. Good capillary refill throughout normal sensation light touch both lower extremities. Urinary Catheter Management^: Martinez: Cath Placed During This Visit: yes, but has since been removed by the nurse Reason for Continuing Indwelling Catheter: Decision to DC Catheter Urinary Catheter Date of Insertion: 09/16/21 Urinary Catheter Time of Insertion: 12:30 Date Urinary Catheter Removed: 09/17/21 Time Urinary Catheter Discontinued: 13:00 Data : 09/18/21 04:50 09/18/21 04:50 Micro: Microbiology 09/18/21 04:50 Blood Culture - Preliminary Blood 09/17/21 19:19 Blood Culture - Preliminary Blood NEGATIVE TO DATE A&P Assessment and plan (1) S/P laminectomy: Following the patient's bowel movement will recommend discontinuation of the Martinez catheter. Also consider Flomax 0.4mg p.o. to help with voiding. Continue physical therapy. Will await consultation from health and social care teacher and potential rehab. Status: Acute (2) Cauda equina injury without bone injury: Status: Acute Attestations Medical Necessity Statement*: Awaiting social consultation for placement Coding Level of Care Code Acute Extracting Machine Operator for Chg Fwd Diagnoses S/P laminectomy Z98.890 Cauda equina injury without bone injury S34.3XXA Documented by User: Nima Houser DO 09/19/21 07:29 Physical Exam Urinary Catheter Management^: Martinez: Cath Placed During This Visit: no Data : 09/18/21 04:50 09/18/21 04:50 Attestations Medical Necessity Statement*: per primary team Coding Level of Care Code Acute Extracting Machine Operator for Chg Fwd Diagnoses S/P laminectomy Z98.890 Cauda equina injury without bone injury S34.3XXA
[2021-09-19 07:22] VITALS: BP 160/71; PULSE 72; RESP 18; TEMP 36.4; O2SAT 93
[2021-09-19] MEDS: vancomycin 1,500 MG/300 ML PIGGYBACK 200 MG IV (07:57)
[2021-09-19] MEDS: hydroCHLOROthiazide 25 mg Tablet 50 MG PO (08:03)
[2021-09-19] MEDS: tamsulosin 0.4 mg Capsule PO (08:03)
[2021-09-19] MEDS: HYDROcodone-acetaminophen 5-325 mg Tablet 1 TAB PO ×2 (08:03→22:28)
[2021-09-19] MEDS: sulfamethoxazole-trimeth DS 160-800 mg Tablet 1 TAB PO (08:03)
[2021-09-19] MEDS: meloxicam 7.5 mg tablet 15 MG PO (08:03)
[2021-09-19] MEDS: sennosides-docusate Tablet 1 TAB PO ×2 (08:03→17:17)
[2021-09-19] MEDS: docusate sodium 100 mg Capsule PO ×2 (08:03→17:17)
--- NOTE | 2021-09-19 11:00 | PC.SOCIAL ---
IMM Update Pg. 2 of IMM updated and reviewed with patient, who verbalized understanding. Copy provided.
[2021-09-19 12:00] VITALS: BP 142/65; PULSE 73; RESP 18; TEMP 36.4; O2SAT 92
--- NOTE | 2021-09-19 14:02 | PM.PN ---
Subjective Subjective: Interval history: Seen this morning. Patient is requesting to go home. His blood culture 1 out of 3 bottle was positive for gram-positive cocci yesterday. Urine culture was positive for staph aureus. Both samples were repeated. At this point 2 out of 3 bottles are positive for gram-positive cocci in clusters sample from admission and last night the repeat sample. He was started on vancomycin early this morning. Patient's Martinez was removed yesterday but he was continued to retain urine and therefore it was replaced. Vitals/I&O/Wt Last Vital Signs Temp 97.5 F L 09/19/21 12:00 Pulse 73 09/19/21 12:00 Resp 18 09/19/21 12:00 BP 142/65 09/19/21 12:00 Pulse Ox 92 09/19/21 12:00 09/18/21 09/19/21 09/19/21 22:59 06:59 14:59 Intake Total 120 / 840 780 / 780 Output Total 1200 / 1200 900 / 2100 600 / 600 Balance -1080 / -360 -900 / -1260 180 / 180 Physical Exam Narrative: EXAM NARRATIVE: General: Alert oriented x3, patient seen sitting up in recliner. HEENT: Normocephalic, atraumatic, EOMI, breathing comfortably. Cardio: Regular rate rhythm, normal S1-S2 Respiratory: Good bilateral air entry, no wheezes no rhonchi appreciated GI: Abdomen soft, nontender, bowel sounds + Extremities: no edema, no cyanosis Martinez catheter in place draining clear light yellow urine. Urinary Catheter Management^: Martinez: Cath Placed During This Visit: yes, but has since been removed by the nurse Reason for Continuing Indwelling Catheter: Decision to DC Catheter Urinary Catheter Date of Insertion: 09/16/21 Urinary Catheter Time of Insertion: 12:30 Date Urinary Catheter Removed: 09/17/21 Time Urinary Catheter Discontinued: 13:00 Data : 09/18/21 04:50 09/18/21 04:50 Micro: Microbiology 09/17/21 19:19 Blood Culture - Preliminary Blood 09/18/21 04:50 Blood Culture - Preliminary Blood 09/17/21 19:40 Urine Culture - Preliminary Urine Catheterized A&P Assessment and plan (1) Bacteremia: Status: Acute (2) Urine retention: Status: Acute (3) Cauda equina injury without bone injury: Status: Acute (4) Attention deficit disorder (ADD) in adult: Status: Acute (5) Hypertension: Status: Acute (6) S/P laminectomy: Status: Acute Additional A&P Information #Cauda equina syndrome with urinary retention status post bilateral L4/5 laminectomy with partial fasciotectomy's. #Urinary retention status post Martinez catheter -Postop day 3. ?Patient was able to have a bowel movement yesterday. He is ambulating with a walker but weak on the right side. He did have a fall in the restroom but did not have any increased back pain or lower extremity pain. -Physical therapy to work with the patient ?We will talk to case management regarding rehab #Gram-positive cocci clusters bacteremia #Possible discitis/osteomyelitis ?Cultures from September 17, September 18 are positive 2 out of 3 bottles for gram-positive cocci in clusters. Vancomycin has been started for this patient. There is no increased leukocytosis and patient has remained afebrile. At this point this does not seem to be a contaminant. -MRI at admission did show thickening and mild enhancement involving nerve roots from conus probably representing in the right is secondary to stenosis and compression upon the nerve root distally. Discitis or osteomyelitis or tumor identified. -We will continue vancomycin for now. #Hypertension #ADHD ?Continue home medications Full code DVT prophylaxis Low-salt diet. Attestations Medical Necessity Statement*: Greater than 48-hour stay. Blood cultures are positive. Coding Level of Care Code Acute Enrollment Management Manager for reba Nicoled Diagnoses Bacteremia R78.81 Urine retention R33.9 Cauda equina injury without bone injury S34.3XXA Attention deficit disorder (ADD) in adult F98.8 Hypertension I10 S/P laminectomy Z98.890
[2021-09-19 16:00] VITALS: BP 150/66; PULSE 69; RESP 18; TEMP 36.6; O2SAT 93
[2021-09-19 20:00] VITALS: BP 138/77; PULSE 77; RESP 17; TEMP 37.1; O2SAT 95
[2021-09-19] MEDS: citalopram 20 mg Tablet PO (20:09)
[2021-09-20] VITALS: BP 148/74; PULSE 68; RESP 17; TEMP 36.4; O2SAT 94
[2021-09-20] MEDS: vancomycin 1,500 MG/300 ML PIGGYBACK 200 MG IV ×2 (01:49→21:27)
[2021-09-20 04:00] VITALS: BP 158/71; PULSE 62; RESP 17; TEMP 36.4; O2SAT 95
[2021-09-20] MEDS: dexamethasone 10 mg/mL INJ IVP ×4 (05:09→23:18)
--- NOTE | 2021-09-20 05:13 | PC.NURSE ---
SHIFT SUMMARY Has rested well tonight. Pleasant. Did tell me this morning that he had some bad dreams and when he woke up he felt confused about surroundings and events. Did receive po Hydrocodone X1 for c/o R knee. Dressing remains intact to medial lower back. Has some continuing numbness to posterior upper legs, penis & scrotum. Good neurovascular checks otherwise. Receiving IV antibiotics. Martinez draining well and taking po well.
[2021-09-20] MEDS: lisinopril 20 mg Tablet PO (05:27)
[2021-09-20] MEDS: enoxaparin 40 mg/0.4 mL Syringe SUBCUT (05:27)
[2021-09-20 06:58] LABS: Basophils # 0.1 10^3/uL (0.0-0.1); Basophils % 0.3 %; Hematocrit 41.7 % (42.0-52.0); Hemoglobin 14.3 g/dL (11.7-16.6); Lymphocytes # 1.1 10^3/uL (0.8-4.8); Lymphocytes % 6.3 %; Mean Corpuscular HGB Conc 34.3 g/dL (30.0-36.0); Mean Corpuscular Hemoglobin 31.4 pg (28.0-34.0); Mean Corpuscular Volume 91.6 fl (80-94); Mean Platelet Volume 9.6 fL (7.4-10.4); Monocytes % 5.9 %; Neutrophils # 14.82 10^3/uL (1.8-7.7); Nucleated Red Blood Cells % 0 %; Platelet Count 193 10^3/cmm (130-400); Red Blood Count 4.55 10^6/uL (4.1-5.3); White Blood Count 17.2 10^3/uL (4.0-10.0)
[2021-09-20 07:23] LABS: Anion Gap 15.6 (5-19); Blood Urea Nitrogen 29 mg/dL (8-23); Carbon Dioxide 23 mmol/L (22-29); Chloride 99 mmol/L (98-107); Glucose 139 mg/dL (65-115); Magnesium 2.3 mg/dL (1.7-2.3); Osmolality Calculated 284 mOsm/kg (285-295); Potassium 4.6 mmol/L (3.5-5.1); Sodium 133 mmol/L (136-145)
[2021-09-20 07:46] VITALS: BP 171/72; PULSE 63; RESP 18; TEMP 36.6; O2SAT 94
[2021-09-20] MEDS: docusate sodium 100 mg Capsule PO ×2 (08:04→16:47)
[2021-09-20] MEDS: sennosides-docusate Tablet 1 TAB PO ×2 (08:04→16:48)
[2021-09-20] MEDS: tamsulosin 0.4 mg Capsule PO (08:05)
[2021-09-20] MEDS: hydroCHLOROthiazide 25 mg Tablet 50 MG PO (08:05)
[2021-09-20] MEDS: meloxicam 7.5 mg tablet 15 MG PO (08:05)
[2021-09-20] MEDS: sulfamethoxazole-trimeth DS 160-800 mg Tablet 1 TAB PO (08:05)
--- NOTE | 2021-09-20 09:03 | PM.PN ---
Documented by User: CALOS Smith 09/20/21 09:07 Subjective Subjective: Interval history: POD 4 Patient resting comfortably. Back pain has become much less. Feels he is getting stronger with mobilizing. Vitals/I&O/Wt Last Vital Signs Temp 97.8 F 09/20/21 07:46 Pulse 63 09/20/21 07:46 Resp 18 09/20/21 07:46 BP 171/72 09/20/21 07:46 Pulse Ox 94 09/20/21 07:46 09/19/21 09/20/21 09/20/21 22:59 06:59 14:59 Intake Total 100 / 1120 500 / 1620 Output Total 850 / 1450 1175 / 2625 Balance -750 / -330 -675 / -1005 Physical Exam Narrative: EXAM NARRATIVE: Patient presents alert and oriented x3 with a good general appearance normal normal affect. Mild tenderness around the incisional site with the incision appears c/d. No signs of erythema or drainage. No signs of infection. Patient denies any fevers or chills. 4/5 motor strength in RLE lower extremity with 5/5 on LLE with negative straight leg raise bilaterally. Calves are supple no medial thigh tenderness. Pulses are 1+ at the dorsalis pedis and posterior tibial region. Good capillary refill throughout normal sensation light touch both lower extremities. Urinary Catheter Management^: Martinez: Cath Placed During This Visit: yes, but has since been removed by the nurse Reason for Continuing Indwelling Catheter: Decision to DC Catheter Urinary Catheter Date of Insertion: 09/16/21 Urinary Catheter Time of Insertion: 12:30 Date Urinary Catheter Removed: 09/17/21 Time Urinary Catheter Discontinued: 13:00 Data : 09/20/21 06:27 09/20/21 06:27 Micro: Microbiology 09/17/21 19:19 Blood Culture - Preliminary Blood 09/18/21 04:50 Blood Culture - Preliminary Blood 09/17/21 19:40 Urine Culture - Preliminary Urine Catheterized A&P Assessment and plan (1) S/P laminectomy: Continue to mobilize with physical therapy. Continue incentive spirometry for pulmonary toilet. We will have him follow-up in 1 week in the office for wound check. Status: Acute Attestations Medical Necessity Statement*: defer to Medical Team Coding Level of Care Code Acute Boilers Inspector for Chg Fwd Diagnoses S/P laminectomy Z98.890 Documented by User: Nima Houser DO 09/20/21 11:15 Physical Exam Urinary Catheter Management^: Martinez: Cath Placed During This Visit: no Data : 09/20/21 06:27 09/20/21 06:27 A&P Assessment and plan (1) S/P laminectomy: discussed with Hospitalist they will take over as primary. Will continue to follow. Status: Acute Coding Level of Care Code Acute Boilers Inspector for Chg Fwd Diagnoses S/P laminectomy Z98.890
[2021-09-20 11:30] VITALS: BP 130/67; PULSE 90; RESP 18; TEMP 36.5; O2SAT 95
--- NOTE | 2021-09-20 12:50 | MR_ITS ---
NOTE: Report was unsigned for reason: Order was edited. Original Signature date and time was: 09/16/2021 1145 AM MRI LUMBAR SPINE WITHOUT AND WITH CONTRAST HISTORY: saddle parasthenia COMPARISON: CT lumbar spine 09/15/2021. TECHNIQUE: Sagittal and axial multisequence imaging is submitted. CONTRAST: Multihance 20 ml Advanced degenerative disc disease and osteophytosis throughout the cervical and thoracic spine with multilevel areas of central canal stenosis in the cervical spine including C3-4, C4-5 and C5-6. Mild degenerative LEFT scoliosis lumbar spine. Severe disc space narrowing throughout the lumbar spine with osteophytes and disc bulging and facet arthritis. No acute fracture. Conus terminates normally at L1. Mild thickening of the nerve roots at the conus medullaris. The distal tip of the conus is poorly visualized due to thickening of the nerve roots and increased T2 signal at the L1 level. L1-L2: Diffuse annular disc bulging and osteophytic ridging. Loss of the normal CSF. There is increased epidural fat posteriorly. Severe central stenosis with moderate bilateral foraminal stenosis. L2-L3: Osteophytic ridging with annular disc bulging and severe ligamentum flavum and facet arthritis. Disc and osteophyte encroachment into the central canal and subarticular recesses. Thecal sac is being displaced to the LEFT. Severe central, bilateral subarticular recess and moderate foraminal stenosis. L3-L4: Essentially complete effacement of CSF. Epidural fat is present posteriorly. Disc and osteophyte encroachment into the thecal sac and subarticular recesses. Severe central, bilateral subarticular recess and foraminal stenosis. L4-L5: Marked osteophytic ridging with annular disc bulging. Severe central, bilateral subarticular recess and foraminal stenosis. Extensive bilateral subarticular recess stenosis. L5-S1: Marked osteophytic ridging and annular disc bulging with mild ligamentum flavum and facet arthritis. Disc is contacting and displacing the S1 nerve roots bilaterally. Mild central with moderate to severe bilateral subarticular recess and foraminal stenosis. Postcontrast imaging is also obtained. There is significant motion artifact but no evidence for discitis or osteomyelitis. No mass identified. There is some very mild enhancement involving the nerve roots in the conus. Probably representing neuritis. IMPRESSION: 1. Severe multilevel central, subarticular recess and foraminal stenosis. 2. Significant central, subarticular recess and foraminal stenosis from L1-2 to L5-S1. Most severe disease stenosis at L2-3, L3-4 and L4-5. 3. Thickening and mild enhancement involving the nerve roots from the conus probably representing in the RIGHT is secondary to the stenosis and compression upon the nerve roots distally. Discitis or osteomyelitis or tumor identified. [facility] MR/MR lumbar spine wo/w con [id number] IMPRESSION: 1. Severe multilevel central, subarticular recess and foraminal stenosis. 2. Significant central, subarticular recess and foraminal stenosis from L1-2 to L5-S1. Most severe disease stenosis at L2-3, L3-4 and L4-5. 3. Thickening and mild enhancement involving the nerve roots from the conus pr obably representing in the RIGHT is secondary to the stenosis and compression u lizbeth the nerve roots distally. Discitis or osteomyelitis or tumor identified.
--- NOTE | 2021-09-20 15:24 | P.PN_ITS ---
Subjective Subjective: Interval history: Seen this morning. Patient blood cultures are positive for gram-positive cocci in clusters. He has been started on vancomycin IV. I discussed with the patient regarding his results and he was quite receptive and understanding. All questions answered. Patient however feels well and does not have any symptoms. Denies of back pain, respiratory complai nts. Has been afebrile overnight. WBC count has jumped to 17.2. Vitals/I&O/Wt Last Vital Signs Temp 97.7 F 09/20/21 11:30 Pulse 90 09/20/21 11:30 Resp 18 09/20/21 11:30 BP 130/67 09/20/21 11:30 Pulse Ox 95 09/20/21 11:30 09/20/21 09/20/21 09/20/21 06:59 14:59 22:59 Intake Total 500 / 1620 240 / 240 Output Total 1175 / 2625 700 / 700 Balance -675 / -1005 -460 / -460 Physical Exam Narrative: EXAM NARRATIVE: General: Alert oriented x3, patient seen sitting up in recliner. HEENT: Normocephalic, atraumatic, EOMI, breathing comfortably. Cardio: Regular rate rhythm, normal S1-S2 Respiratory: Good bilateral air entry, no wheezes no rhonchi appreciated GI: Abdomen soft, nontender, bowel sounds + Extremities: no edema, no cyanosis Martinez catheter in place draining clear light yellow urine. Urinary Catheter Management^: Martinez: Cath Placed During This Visit: yes, but has since been removed by the nurse Reason for Continuing Indwelling Catheter: Decision to DC Catheter Urinary Catheter Date of Insertion: 09/16/21 Urinary Catheter Time of Insertion: 12:30 Date Urinary Catheter Removed: 09/17/21 Time Urinary Catheter Discontinued: 13:00 Data : 09/20/21 06:27 09/20/21 06:27 Micro: Microbiology 09/17/21 19:19 Blood Culture - Preliminary Blood Staphylococcus aureus 09/18/21 04:50 Blood Culture - Preliminary Blood Staphylococcus aureus 09/17/21 19:40 Urine Culture - Final Urine Catheterized 09/19/21 12:10 Urine Culture - Preliminary Urine Catheterized A&P Assessment and plan (1) Bacteremia: Status: Acute (2) Urine retention: Status: Acute (3) Cauda equina injury without bone injury: Status: Acute (4) Attention deficit disorder (ADD) in adult: Status: Acute (5) Hypertension: Status: Acute (6) S/P laminectomy: Status: Acute Additional A&P Information #Cauda equina syndrome with urinary retention status post bilateral L4/5 laminectomy with partial fasciotectomy's. #Urinary retention status post Martinez catheter -Postop day 3. ?Patient was able to have a bowel movement yesterday. He is ambulating with a walker but weak on the right side. He did have a fall in the restroom but did not have any increased back pain or lower extremity pain. -Physical therapy to work with the patient ?We will talk to case management regarding rehab ?Patient did see Dr. Salinas in his office in 2 weeks for suture removal. #Gram-positive cocci clusters bacteremia #Possible discitis/osteomyelitis ?Cultures from September 17, September 18 are positive 2 out of 3 bottles for gram-positive cocci in clusters. Vancomycin has been started for this patient. There is no increased leukocytosis and patient has remained afebrile. At this point this does not seem to be a contaminant. -MRI at admission did show thickening and mild enhancement involving nerve roots from conus probably representing in the right is secondary to stenosis and compression upon the nerve root distally. Discitis or osteomyelitis or tumor identified. -We will continue vancomycin for now. Discussed with infectious disease specialist Dr. Valdez over the phone. We will wait for final culture sensitivity to decide further course. Patient will also potentially need repeat imaging to find source. We will continue to repeat blood cultures every 48 hours. Continue vancomycin for now. Eventually patient will need a PICC line and 6 weeks of IV antibiotics pending culture sensitivity results #Hypertension #ADHD ?Continue home medications Full code DVT prophylaxis Low-salt diet. Patient updated in detail and he understands the plan and is okay with staying in the hospital. Attestations Medical Necessity Statement*: Greater than 72 hours expected. Coding Level of Care Code Acute Genetics Nurse for Maggieg Fwd Diagnoses Bacteremia R78.81 Urine retention R33.9 Cauda equina injury without bone injury S34.3XXA Attention deficit disorder (ADD) in adult F98.8 Hypertension I10 S/P laminectomy Z98.890
[2021-09-20 15:44] VITALS: BP 161/80; PULSE 66; RESP 18; TEMP 36.9; O2SAT 94
[2021-09-20 20:00] VITALS: BP 143/65; PULSE 74; RESP 21; TEMP 36.7; O2SAT 95
[2021-09-20] MEDS: citalopram 20 mg Tablet PO (21:27)
[2021-09-20] MEDS: ketorolac 30 mg/mL INJ IVP (23:17)
[2021-09-21] VITALS (7 sets, daily range): BP systolic 122–164; BP diastolic 57–76; PULSE 59–88; RESP 16–22; TEMP 36.4–37.1; O2SAT 94–96
[2021-09-21] MEDS: dexamethasone 10 mg/mL INJ IVP ×4 (05:31→22:21)
[2021-09-21] MEDS: enoxaparin 40 mg/0.4 mL Syringe SUBCUT (05:31)
[2021-09-21] MEDS: lisinopril 20 mg Tablet PO (05:31)
[2021-09-21 06:25] LABS: Basophils % 0.2 %; Hematocrit 41.7 % (42.0-52.0); Hemoglobin 14.2 g/dL (11.7-16.6); Lymphocytes # 1.5 10^3/uL (0.8-4.8); Lymphocytes % 10.1 %; Mean Corpuscular HGB Conc 34.1 g/dL (30.0-36.0); Mean Corpuscular Hemoglobin 31.3 pg (28.0-34.0); Mean Corpuscular Volume 91.9 fl (80-94); Mean Platelet Volume 9.8 fL (7.4-10.4); Monocytes # 0.9 10^3/uL (0.2-0.9); Monocytes % 6.2 %; Neutrophils # 12.11 10^3/uL (1.8-7.7); Neutrophils % 80.3 %; Nucleated Red Blood Cells % 0 %; Platelet Count 198 10^3/cmm (130-400); Red Blood Count 4.54 10^6/uL (4.1-5.3); Red Cell Distribution Width 11.9 % (12.1-15.1); White Blood Count 15.1 10^3/uL (4.0-10.0)
[2021-09-21 06:52] LABS: Anion Gap 14.1 (5-19); Blood Urea Nitrogen 32 mg/dL (8-23); Calcium 8.1 mg/dL (8.5-10.5); Carbon Dioxide 24 mmol/L (22-29); Chloride 97 mmol/L (98-107); Glucose 129 mg/dL (65-115); Magnesium 2.5 mg/dL (1.7-2.3); Osmolality Calculated 279 mOsm/kg (285-295); Potassium 5.1 mmol/L (3.5-5.1); Sodium 130 mmol/L (136-145)
--- NOTE | 2021-09-21 07:53 | P.PN_ITS ---
Subjective Subjective: Interval history: resting comfortably Vitals/I&O/Wt Last Vital Signs Temp 98.1 F 09/21/21 07:46 Pulse 59 L 09/21/21 07:46 Resp 18 09/21/21 07:46 BP 157/76 09/21/21 07:46 Pulse Ox 96 09/21/21 07:46 09/20/21 09/21/21 09/21/21 22:59 06:59 14:59 Intake Total 940 / 1180 Output Total 1450 / 2150 370 / 2520 Balance -1450 / -1910 570 / -1340 Physical Exam Narrative: EXAM NARRATIVE: resting in bed Urinary Catheter Management^: Martinez: Cath Placed During This Visit: yes, but has since been removed by the nurse Reason for Continuing Indwelling Catheter: Decision to DC Catheter Urinary Catheter Date of Insertion: 09/16/21 Urinary Catheter Time of Insertion: 12:30 Date Urinary Catheter Removed: 09/17/21 Time Urinary Catheter Discontinued: 13:00 Data : 09/21/21 05:15 09/21/21 05:15 Micro: Microbiology 09/21/21 05:15 Blood Culture - Preliminary Blood SPECIMEN COLLECTED 09/21/21 05:15 Blood Culture - Preliminary Blood SPECIMEN COLLECTED 09/20/21 17:58 Blood Culture - Preliminary Blood SPECIMEN COLLECTED 09/20/21 17:54 Blood Culture - Preliminary Blood SPECIMEN COLLECTED 09/17/21 19:19 Blood Culture - Preliminary Blood Staphylococcus aureus 09/18/21 04:50 Blood Culture - Preliminary Blood Staphylococcus aureus 09/17/21 19:40 Urine Culture - Final Urine Catheterized 09/19/21 12:10 Urine Culture - Preliminary Urine Catheterized A&P Assessment and plan (1) S/P laminectomy: POD#5 lumbar decompression WBAT Defer to Hospitalist for Abx and current tx Status: Acute Attestations Medical Necessity Statement*: per primary service Coding Level of Care Code Acute Planishing Press Operator for Chg Fwd Diagnoses S/P laminectomy Z98.890
[2021-09-21] MEDS: sulfamethoxazole-trimeth DS 160-800 mg Tablet 1 TAB PO (07:56)
[2021-09-21] MEDS: docusate sodium 100 mg Capsule PO ×2 (07:56→16:47)
[2021-09-21] MEDS: meloxicam 7.5 mg tablet 15 MG PO (07:56)
[2021-09-21] MEDS: sennosides-docusate Tablet 1 TAB PO ×2 (07:56→16:48)
[2021-09-21] MEDS: tamsulosin 0.4 mg Capsule PO (07:57)
--- NOTE | 2021-09-21 10:34 | PC.CHAP ---
Pastoral Care Encounter/Spiritual Assessment Type of Contact [] Declined lockstitch shoulder joiner visit [] Patient/Family/Request visit [] Outpatient visit [] Follow-up visit [] Physician referral [] Code/Alert x[x] Routine visit [] Staff referral [] Actively dying [] Patient sleeping [] Family support [] [] Out of room [] Palliative care [] [] Receiving care in room [] Pre-surgical visit [] Trauma [] Long length of stay [] ICU visit [] Other: Relational/Emotional Strength [x] Patient feels connected with others/family/visitors/staff [] Distress [] Loneliness/isolation [] Abandonment Spirituality of Patient [x] Person of Tanisha [] Attends Orthodoxy of their Tanisha [x] Believes in Prayer [] Reads Bible or Jew materials [] There are Spiritual issues to be addressed Head Worker Interventions xx[]x Prayer [x] Active listening [x] Non-anxious presence [] Spiritual/emotional support [] Crisis/trauma care [] Spiritual counseling [] Bereavement support [] Provided bereavement packet [] Provided Bible/devotional materials [] Provided toy/stuffed animal, coloring book to patient or family member [] Provided Communion [] Anointing/[place] [] Salvation [x] Completed spiritual assessment [] Other: Impact on Illness or Injury [] Angry [] Fearful [] Anxious [] Often cries [] Exhaustion [] Unable to work [] Unable to attend lutheran [] Unable to walk/stand [] Unable to read [] Unable to drive [] Unable to eat/drink [] Unable to sleep [] Unable to be with family [] Patient intubated [] Other: Summary Time spent with patient 5 min
--- NOTE | 2021-09-21 11:40 | PC.SOCIAL ---
IMM Updated Updated pt on IMM. No questions voiced. Provided pt a copy. Initialed, dated, & timed copy in chart.
[2021-09-21 14:22] LABS: Vancomycin Trough 10.3 ug/mL (10-15)
[2021-09-21] MEDS: vancomycin 1,500 MG/300 ML PIGGYBACK 200 MG IV (14:44)
--- NOTE | 2021-09-21 16:01 | PM.PN ---
Subjective Subjective: Interval history: Blood cultures continue to be positive. Final sensitivity culture pending. Organism identified as staph aureus. Sensitivities pending. Patient is doing okay and does not have any complaints to offer this morning. He states however he feels he is stuck in the hospital. He does understand the reasoning of still being hospitalized however. Vitals/I&O/Wt Last Vital Signs Temp 97.8 F 09/21/21 15:38 Pulse 76 09/21/21 15:38 Resp 18 09/21/21 15:38 BP 141/65 09/21/21 15:38 Pulse Ox 95 09/21/21 15:38 09/21/21 09/21/21 09/21/21 06:59 14:59 22:59 Intake Total 940 / 1180 720 / 720 Output Total 370 / 2520 Balance 570 / -1340 720 / 720 Physical Exam Narrative: EXAM NARRATIVE: General: Alert oriented x3, patient seen sitting up in recliner. HEENT: Normocephalic, atraumatic, EOMI, breathing comfortably. Cardio: Regular rate rhythm, normal S1-S2 Respiratory: Good bilateral air entry, no wheezes no rhonchi appreciated GI: Abdomen soft, nontender, bowel sounds + Extremities: no edema, no cyanosis Martinez catheter in place draining clear light yellow urine. Urinary Catheter Management^: Martinez: Cath Placed During This Visit: yes, but has since been removed by the nurse Reason for Continuing Indwelling Catheter: Decision to DC Catheter Urinary Catheter Date of Insertion: 09/16/21 Urinary Catheter Time of Insertion: 12:30 Date Urinary Catheter Removed: 09/17/21 Time Urinary Catheter Discontinued: 13:00 Data : 09/21/21 05:15 09/21/21 05:15 Micro: Microbiology 09/17/21 19:19 Blood Culture - Preliminary Blood Staphylococcus aureus 09/18/21 04:50 Blood Culture - Preliminary Blood Staphylococcus aureus 09/19/21 12:10 Urine Culture - Final Urine Catheterized 09/21/21 05:15 Blood Culture - Preliminary Blood SPECIMEN COLLECTED 09/21/21 05:15 Blood Culture - Preliminary Blood SPECIMEN COLLECTED 09/20/21 17:58 Blood Culture - Preliminary Blood SPECIMEN COLLECTED 09/20/21 17:54 Blood Culture - Preliminary Blood SPECIMEN COLLECTED A&P Assessment and plan (1) Bacteremia: Status: Acute (2) Urine retention: Status: Acute (3) Cauda equina injury without bone injury: Status: Acute (4) Attention deficit disorder (ADD) in adult: Status: Acute (5) Hypertension: Status: Acute (6) S/P laminectomy: Status: Acute Additional A&P Information #Cauda equina syndrome with urinary retention status post bilateral L4/5 laminectomy with partial fasciotectomy's. #Urinary retention status post Martinez catheter -Postop day 3. ?Patient was able to have a bowel movement yesterday. He is ambulating with a walker but weak on the right side. He did have a fall in the restroom but did not have any increased back pain or lower extremity pain. -Physical therapy to work with the patient ?We will talk to case management regarding rehab ?Patient did see Dr. Salinas in his office in 2 weeks for suture removal. #Gram-positive cocci clusters bacteremia #Possible discitis/osteomyelitis ?Cultures from September 17, September 18 are positive 2 out of 3 bottles for gram-positive cocci in clusters. Vancomycin has been started for this patient. There is no increased leukocytosis and patient has remained afebrile. At this point this does not seem to be a contaminant. -MRI at admission did show thickening and mild enhancement involving nerve roots from conus probably representing in the right is secondary to stenosis and compression upon the nerve root distally. Discitis or osteomyelitis or tumor identified. -We will continue vancomycin for now. Discussed with infectious disease specialist Dr. Valdez over the phone. We will wait for final culture sensitivity to decide further course. Patient will also potentially need repeat imaging to find source. We will continue to repeat blood cultures every 48 hours. Continue vancomycin for now. Eventually patient will need a PICC line and 6 weeks of IV antibiotics pending culture sensitivity results #Hypertension #ADHD ?Continue home medications Full code DVT prophylaxis Low-salt diet. Patient updated in detail and he understands the plan and is okay with staying in the hospital. Attestations Medical Necessity Statement*: Greater than 48 hours day. Coding Level of Care Code Acute Screen Printing Supervisor for g Fwd Diagnoses Bacteremia R78.81 Urine retention R33.9 Cauda equina injury without bone injury S34.3XXA Attention deficit disorder (ADD) in adult F98.8 Hypertension I10 S/P laminectomy Z98.890
[2021-09-21] MEDS: citalopram 20 mg Tablet PO (22:00)
[2021-09-21] MEDS: ketorolac 30 mg/mL INJ IVP (22:12)
[2021-09-22] VITALS: BP 162/72; PULSE 59; RESP 17; TEMP 36.4; O2SAT 96
[2021-09-22 04:00] VITALS: BP 178/73; PULSE 58; RESP 18; TEMP 36.5; O2SAT 96
[2021-09-22] MEDS: dexamethasone 10 mg/mL INJ IVP ×4 (05:26→22:13)
[2021-09-22 05:34] LABS: Basophils # 0.1 10^3/uL (0.0-0.1); Basophils % 0.3 %; Hematocrit 42.3 % (42.0-52.0); Hemoglobin 14.5 g/dL (11.7-16.6); Lymphocytes # 1.6 10^3/uL (0.8-4.8); Lymphocytes % 9.5 %; Mean Corpuscular HGB Conc 34.3 g/dL (30.0-36.0); Mean Corpuscular Hemoglobin 31.3 pg (28.0-34.0); Mean Corpuscular Volume 91.4 fl (80-94); Mean Platelet Volume 9.4 fL (7.4-10.4); Monocytes # 0.9 10^3/uL (0.2-0.9); Monocytes % 5.5 %; Neutrophils # 13.11 10^3/uL (1.8-7.7); Neutrophils % 79.9 %; Nucleated Red Blood Cells % 0 %; Platelet Count 202 10^3/cmm (130-400); Red Blood Count 4.63 10^6/uL (4.1-5.3); Red Cell Distribution Width 11.7 % (12.1-15.1); White Blood Count 16.4 10^3/uL (4.0-10.0)
[2021-09-22 06:06] LABS: Blood Urea Nitrogen 38 mg/dL (8-23); Calcium 8.2 mg/dL (8.5-10.5); Carbon Dioxide 23 mmol/L (22-29); Chloride 97 mmol/L (98-107); Glucose 130 mg/dL (65-115); Magnesium 2.5 mg/dL (1.7-2.3); Osmolality Calculated 281 mOsm/kg (285-295); Sodium 130 mmol/L (136-145)
[2021-09-22] MEDS: lisinopril 20 mg Tablet PO (06:30)
[2021-09-22] MEDS: enoxaparin 40 mg/0.4 mL Syringe SUBCUT (06:30)
[2021-09-22 07:29] VITALS: BP 191/76; PULSE 60; RESP 18; TEMP 36.4; O2SAT 96
[2021-09-22] MEDS: vancomycin 1,500 MG/300 ML PIGGYBACK 200 MG IV (09:52)
[2021-09-22] MEDS: sennosides-docusate Tablet 1 TAB PO ×2 (09:57→17:17)
[2021-09-22] MEDS: docusate sodium 100 mg Capsule PO ×2 (09:57→17:17)
[2021-09-22] MEDS: hydroCHLOROthiazide 25 mg Tablet 50 MG PO (09:57)
[2021-09-22] MEDS: tamsulosin 0.4 mg Capsule PO (09:57)
[2021-09-22] MEDS: sulfamethoxazole-trimeth DS 160-800 mg Tablet 1 TAB PO (09:57)
[2021-09-22] MEDS: meloxicam 7.5 mg tablet 15 MG PO (09:57)
--- NOTE | 2021-09-22 11:23 | P.PN_ITS ---
Subjective Subjective: Interval history: Seen this morning seen this morning. Afebrile overnight. Does not offer any complaints this morning. Vitals/I&O/Wt Last Vital Signs Temp 97.5 F L 09/22/21 07:29 Pulse 60 09/22/21 07:29 Resp 18 09/22/21 07:29 BP 191/76 09/22/21 07:29 Pulse Ox 96 09/22/21 07:29 09/21/21 09/22/21 09/22/21 22:59 06:59 14:59 Intake Total 1740 / 2460 200 / 2660 360 / 360 Output Total 150 / 150 800 / 950 Balance 1590 / 2310 -600 / 1710 360 / 360 Physical Exam Narrative: EXAM NARRATIVE: General: Alert oriented x3, patient seen sitting up in recliner. HEENT: Normocephalic, atraumatic, EOMI, breathing comfortably. Cardio: Regular rate rhythm, normal S1-S2 Respiratory: Good bilateral air entry, no wheezes no rhonchi appreciated GI: Abdomen soft, nontender, bowel sounds + Extremities: no edema, no cyanosis Martinez catheter in place draining clear light yellow urine. Urinary Catheter Management^: Martinez: Cath Placed During This Visit: yes, but has since been removed by the nurse Reason for Continuing Indwelling Catheter: Decision to DC Catheter Urinary Catheter Date of Insertion: 09/16/21 Urinary Catheter Time of Insertion: 12:30 Date Urinary Catheter Removed: 09/17/21 Time Urinary Catheter Discontinued: 13:00 Data : 09/22/21 05:05 09/22/21 05:05 Micro: Microbiology 09/21/21 05:15 Blood Culture - Preliminary Blood NEGATIVE TO DATE 09/21/21 05:15 Blood Culture - Preliminary Blood NEGATIVE TO DATE 09/20/21 17:58 Blood Culture - Preliminary Blood NEGATIVE TO DATE 09/20/21 17:54 Blood Culture - Preliminary Blood NEGATIVE TO DATE 09/17/21 19:19 Blood Culture - Preliminary Blood Staphylococcus aureus 09/18/21 04:50 Blood Culture - Preliminary Blood Staphylococcus aureus 09/19/21 12:10 Urine Culture - Final Urine Catheterized A&P Assessment and plan (1) Bacteremia: Status: Acute (2) Urine retention: Status: Acute (3) Cauda equina injury without bone injury: Status: Acute (4) Attention deficit disorder (ADD) in adult: Status: Acute (5) Hypertension: Status: Acute (6) S/P laminectomy: Status: Acute Additional A&P Information #Cauda equina syndrome with urinary retention status post bilateral L4/5 laminectomy with partial fasciotectomy's. #Urinary retention status post Martinez catheter ?Patient was able to have a bowel movement yesterday. He is ambulating with a walker but weak on the right side. He did have a fall in the restroom but did not have any increased back pain or lower extremity pain. -Physical therapy to work with the patient ?We will talk to case management regarding rehab ?Patient did see Dr. Salinas in his office in 2 weeks for suture removal. #Gram-positive cocci clusters bacteremia #Possible discitis/osteomyelitis ?Cultures from September 17, September 18 are positive 2 out of 3 bottles for gra m-positive cocci in clusters. Vancomycin has been started for this patient. There is no increased leukocytosis and patient has remained afebrile. At this point this does not seem to be a contaminant. -MRI at admission did show thickening and mild enhancement involving nerve roots from conus probably representing in the right is secondary to stenosis and compression upon the nerve root distally. Discitis or osteomyelitis or tumor identified. -We will continue vancomycin for now. Discussed with infectious disease specialist Dr. Valdez over the phone. We will wait for final culture sensit ivity to decide further course. Patient will also potentially need repeat imaging to find source. We will continue to repeat blood cultures every 48 hours. Eventually patient will need a PICC line and 6 weeks of IV antibiotics pending culture sensitivity results. Sensitivity is back. We will start cefazolin 2 g every 8 hours. Culture from still positive therefore will check echo to rule out endocarditis. #Hypertension #ADHD ?Continue home medications Full code DVT prophylaxis Low-salt diet. Patient updated in detail and he understands the plan and is okay with staying in the hospital. Attestations Medical Necessity Statement*: > 48 hour stay Coding Level of Care Code Acute Matcher [employer] for [employer] Fwd Diagnoses Bacteremia R78.81 Urine retention R33.9 Cauda equina injury without bone injury S34.3XXA Attention deficit disorder (ADD) in adult F98.8 Hypertension I10 S/P laminectomy Z98.890
[2021-09-22 11:46] VITALS: BP 159/75; PULSE 61; RESP 16; TEMP 36.6; O2SAT 94
--- NOTE | 2021-09-22 12:00 | USCV_ITS ---
Gómez Stevens Age: 76 Gender: M : 1945 Exam Date: 09/22/2021 15:47 Ordering Phys: Elida Domingo MD Technologist: Exam Location: [facility] [place] Indication: ? VEG BACT BP: 159 / 75 HR: 73 Rhythm: Sinus Technical Quality: Poor MEASUREMENTS (Male / Female) Normal Values 2D ECHO LV Diastolic Diameter PLAX 3.7 cm 4.2 - 5.9 / 3.9 - 5.3 cm LV Systolic Diameter PLAX 2.9 cm IVS Diastolic Thickness 1.5 cm 0.6 - 1.0 / 0.6 - 0.9 cm IVS Systolic Thickness 1.6 cm LVPW Diastolic Thickness 1.5 cm 0.6 - 1.0 / 0.6 - 0.9 cm LVPW Systolic Thickness 1.6 cm LVOT Diameter 2.5 cm LV Ejection Fraction MOD 2C 60.7 % LV Ejection Fraction 2C AL 61.6 % LA Diameter 2.9 cm LA Width 4.2 cm LA Height 4.7 cm RA Width 4.6 cm RA Height 4.8 cm DOPPLER AV Peak Velocity 145.7 cm/s LVOT Peak Velocity 112.0 cm/s AV Area Cont Eq vti 4.1 cm squared AV Area Cont Eq pk 3.7 cm squared MV Area PHT 5.0 cm squared Mitral E to A Ratio 0.8 MV E' Velocity 36.0 cm/s Mitral E to MV E' Ratio 8.2 Mitral E to LV E' Lateral Ratio 8.7 Mitral E to LV E' Septal Ratio 7.7 TR Peak Velocity 164.0 cm/s TR Peak Gradient 10.8 mmHg TV Peak E Velocity 66.0 cm/s Right Atrial Pressure 3.0 mmHg Pulmonary Artery Systolic Pressu 13.8 mmHg FINDINGS Left Ventricle Normal left ventricular cavity size. Normal left ventricular systolic function. No regional wall motion abnormalities. Left ventricular ejection fraction is estimated at 60 %. Grade I/IV diastolic dysfunction (abnormal relaxation filling pattern), normal to mildly elevated filling pressures. Right Ventricle The right ventricle is normal in size and function. Right Atrium The right atrium is normal in size. Left Atrium The left atrium is normal in size. Mitral Valve Structurally normal mitral valve without significant stenosis or prolapse. There is no mitral regurgitation. Aortic Valve Structurally normal aortic valve without significant sclerosis or stenosis. There is no aortic regurgitation. Tricuspid Valve Structurally normal tricuspid valve without significant stenosis or regurgitation. Pulmonary artery systolic pressure is normal. Pulmonic Valve Structurally normal pulmonic valve without significant stenosis. There is no pulmonic regurgitation. Pericardium Normal pericardium without effusion. Aorta Normal ascending aorta dimension. CONCLUSIONS 1-Normal left ventricular cavity size. Normal left ventricular systolic function. No regional wall motion abnormalities. Left ventricular ejection fraction is estimated at 60 %. Grade I/IV diastolic dysfunction (abnormal relaxation filling pattern), normal to mildly elevated filling pressures. 2-There is no pericardial effusion. 3-No significant valve abnormalities. 4-Pulmonary artery systolic pressure is within normal limits. 5-There are no prior echocardiogram studies to compare. Mino Crocker MD (Electronically Signed) Final Date: 22 September 2021 16:22 S
--- NOTE | 2021-09-22 14:58 | PM.CONSULT ---
Providers/Reason For Consult Consulting Physician/Specialty*: Jana Valdez MD/Infectious Disease Reason for Consult*: MSSA bacteremia Attending Physician: Mino Sepulveda MD Primary Care Provider: Akilah Mcgarry APN History of Present Illness History of Present Illness Gómez Stevens is a 76 year old male admitted on 09/16/21 for cauda equina syndrome and s/p Bilateral L4/5 laminectomy with partial facetectomies. He had presented to the hospital after sustaining a fall from a 2 step ladder and hit the side of the tub. He was evaluated for back pain in the ER, pelvic x ray without fracture. Lumbar X rays showed multilevel degeneration. Next day he started experiencing bowel incontinence, right-sided leg weakness that prompted his visit to the ER. MRI lumbar spine showed thickening and mild enhancement involving the nerve roots from the conus probably representing in the RIGHT is secondary to the stenosis and compression upon the nerve roots distally. Discitis or osteomyelitis or tumor identified.Blood cx from 09/17, 09/18 and 09/20 resulted with recovery of MSSA. Previously urine cx on 09/15 had additionally shown MSSA, likely also representing bacteremia on 09/15. Patient has thus far received treatment with iv vancomcyin. No h/o IVDU. Review of Systems General: Reports: Other (per admitting note ) Meds/Allergies Home Medications and Allergies Home Medications Medication Instructions Recorded Confirmed Last Taken Type acetaminophen 650 mg 1,300 mg PO BEDTIME 01/14/20 09/16/21 Unknown History tablet,extended release cholecalciferol (vitamin D3) 25 25 mcg PO DAILY 01/14/20 09/16/21 09/15/21 History mcg (1,000 unit) capsule cinnamon bark 500 mg capsule 1,000 mg PO DAILY 01/14/20 09/16/21 Unknown History flaxseed See Rx Instructions .ROUTE .COMPLEX 01/14/20 09/16/21 Unknown History hesperidin-diosmin 100 mg-500 mg 1 tab PO BID 01/14/20 09/16/21 Unknown History tablet hydrochlorothiazide 50 mg tablet 50 mg PO QAM 01/14/20 09/16/21 09/16/21 05:15 History lisinopril 20 mg tablet 20 mg PO QAM 01/14/20 09/16/21 09/16/21 05:15 History meloxicam 15 mg tablet 15 mg PO QAM 01/14/20 09/16/21 09/15/21 History miconazole nitrate 2 % topical 1 spray TOPICAL DAILY PRN 01/14/20 09/16/21 Unknown History spray psyllium husk 0.4 gram capsule 24 gm PO DAILY cap 01/14/20 09/16/21 Unknown History triamcinolone acetonide 0.1 % 1 applic TOPICAL TID PRN 01/14/20 09/16/21 Unknown History topical cream wheat bran 3 gram/9.3 gram oral 16 gm PO DAILY 01/14/20 09/16/21 09/15/21 History powder hydrocodone-acetaminophen 1 tab PO Q6H PRN #15 tab 09/15/21 09/16/21 Unknown Rx tizanidine 4 mg PO Q8H PRN #20 cap 09/15/21 09/16/21 09/16/21 05:15 Rx bran [Oat Bran] See Rx Instructions .ROUTE .COMPLEX 09/16/21 09/16/21 Unknown History citalopram 20 mg PO BEDTIME 09/16/21 09/16/21 09/15/21 History multivitamin 1 tab PO DAILY 09/16/21 09/16/21 Unknown History cefazolin 2 g IV Q8H #25 ea 09/26/21 Unknown Rx oxycodone-acetaminophen [Percocet] 1 tab PO ONCE #20 tab 09/26/21 09/16/21 09/16/21 Rx sennosides-docusate sodium 1 tab-cap PO DAILY #30 tab 09/26/21 Unknown Rx [Senna-S] tamsulosin 0.4 mg PO DAILY #30 cap 09/26/21 Unknown Rx Allergies Allergy/AdvReac Type Severity Reaction Status Date / Time ciprofloxacin Allergy nausea, Verified 07/12/20 11:10 swelling cefuroxime [From Zinacef] AdvReac flushing Verified 07/12/20 11:10 hydroxyzine AdvReac muscle Verified 07/12/20 11:10 weakness latex AdvReac rash Verified 07/12/20 11:10 Current Medications Current Medications Generic Name Dose Route Start Last Admin Trade Name Freq PRN Reason Stop Dose Admin Amlodipine Besylate 10 mg 09/23/21 15:00 09/26/21 08:06 Amlodipine 10 Mg Tablet PO 10 mg DAILY ISSAC Administration Bisacodyl 10 mg 09/18/21 09:00 09/26/21 08:07 Bisacodyl 10 Mg Supp TX Not Given DAILY ISSAC Citalopram Hydrobromide 20 mg 09/16/21 21:00 09/25/21 20:23 Citalopram 20 Mg Tablet PO 20 mg BEDTIME ISSAC Administration Docusate Sodium 100 mg 09/16/21 18:00 09/26/21 08:06 Docusate Sodium 100 Mg Capsule PO 100 mg BID ISSAC Administration Enoxaparin Sodium 40 mg 09/17/21 06:00 09/26/21 05:25 Enoxaparin 40 Mg/0.4 Ml Syringe SUBCUT 40 mg Q24H ISSAC Administration Hydrochlorothiazide 50 mg 09/17/21 09:00 09/23/21 08:03 Hydrochlorothiazide 25 Mg Tablet PO 50 mg QD ISSAC Administration Cefazolin Sodium 2,000 mg/ 60 mls @ 100 mls/hr 09/22/21 12:30 09/26/21 13:39 Sodium Chloride IV 100 mls/hr Q8H ISSAC Administration Sodium Chloride 1,000 mls @ 75 mls/hr 09/25/21 07:45 09/26/21 13:40 Sodium Chloride 0.9% IV 75 mls/hr .[id number] ISSAC Administration Lisinopril 20 mg 09/17/21 06:00 09/26/21 05:25 Lisinopril 20 Mg Tablet PO 20 mg QAM ISSAC Administration Meloxicam 15 mg 09/17/21 09:00 09/26/21 08:07 Meloxicam 7.5 Mg Tablet PO 15 mg QD ISSAC Administration Multivitamins Therapeutic 1 tab 09/24/21 09:00 09/26/21 08:07 Multivitamin Therapeutic Tablet PO 1 tab DAILY ISSAC Administration Ondansetron HCl 4 mg 09/16/21 16:53 09/24/21 13:32 Ondansetron 2 Mg/Ml Sdv 2 Ml IVP 4 mg Q6H PRN Administration NAUSEA AND VOMITING Senna/Docusate Sodium 1 tab 09/18/21 09:00 09/26/21 08:07 Sennosides-Docusate Tablet PO 1 tab BID ISSAC Administration Tamsulosin HCl 0.4 mg 09/18/21 09:00 09/26/21 08:06 Tamsulosin 0.4 Mg Capsule PO 0.4 mg DAILY ISSAC Administration Tizanidine HCl 4 mg 09/24/21 00:15 09/25/21 20:29 Tizanidine 4 Mg Tablet PO 4 mg Q8H PRN Administration muscle spasticity PFSH Acute PFSH: Medical History ADHD Bone spur of foot Hypertension Surgical History H/O hernia repair umbilical Family History Other Cancer Denies family history of Diabetes CAD (coronary artery disease) Hypertension Stroke Social History Smoking and tobacco status: never smoked Alcohol intake: current Alcohol intake frequency: few times a week History of recent travel: No Vitals/I&O/Wt Last Vital Signs Temp 97.8 F 09/26/21 14:09 Pulse 64 09/26/21 14:09 Resp 18 09/26/21 14:09 BP 171/69 09/26/21 14:09 Pulse Ox 96 09/26/21 14:09 09/25/21 09/26/21 09/26/21 22:59 06:59 14:59 Intake Total 1164.167 / 2604.167 60 / 2664.167 1440 / 1440 Output Total 550 / 1250 650 / 1900 Balance 614.167 / 1354.167 -590 / 172.775 9150 / 1440 Physical Exam Narrative: EXAM NARRATIVE: Patient not examined as I am off call and not currently available in town to be able to examine patient. History and plan was formulated by chart review and discussion with hospitalist Dr. Domingo Urinary Catheter Management^: Martinez: Cath Placed During This Visit: yes, but has since been removed by the nurse Reason for Continuing Indwelling Catheter: Decision to DC Catheter Urinary Catheter Date of Insertion: 09/16/21 Urinary Catheter Time of Insertion: 12:30 Date Urinary Catheter Removed: 09/17/21 Time Urinary Catheter Discontinued: 13:00 Data Micro: Micro: Microbiology 09/20/21 17:54 Blood Culture - Fi nal Blood Staphylococcus aureus 09/21/21 05:15 Blood Culture - Fi nal Blood NO GROWTH AFTER 5 DAYS 09/21/21 05:15 Blood Culture - Fi nal Blood NO GROWTH AFTER 5 DAYS 09/25/21 04:40 Blood Culture - Pr eliminary Blood NEGATIVE TO SHARI E 09/25/21 04:40 Blood Culture - Pr eliminary Blood NEGATIVE TO SHARI E 09/20/21 17:58 Blood Culture - Fi nal Blood NO GROWTH AFTER 5 DAYS A&P Assessment and plan (1) MSSA (methicillin susceptible Staphylococcus aureus) septicemia: Patient presenting with cauda equina syndrome and + blood cx on 09/17, 09/18 , 09/20 and also + urine cx for MSSA on 09/15 (presumable bacteremic on 09/15). Together with MRI findings clinical picture concerning for osteomyelitis/Discitis, tough to ascertain at this time how long patient has been bacteremic. Thus far on treatment with iv vancomycin, given recovery of MSSA, recommend discontinuing vancomycin and changing treatment to iv cefazolin 2g iv q8h. Kidney function noted to be normal. Reported allergy to Cefuroxime as flushing , not hives or anaphylaxis, can attempt trial of cefazolin with close monitoring. Recommend to additionally obtain TTE and if suspicious follow up with MARIANELA to evalute for endocarditis Denies h/o IVDU Will follow Picc line once blood cx negative for 72 hrs Status: Acute (2) Discitis of lumbosacral region: Status: Acute Coding Level of Care Code Acute Epitaxial Reactor Technician for [facility] Fwjoycelyn Diagnoses MSSA (methicillin susceptible Staphylococcus aureus) septicemia A41.01 Discitis of lumbosacral region M46.47
[2021-09-22 18:07] VITALS: BP 172/66; PULSE 63; RESP 16; TEMP 36.6; O2SAT 98
[2021-09-22 20:00] VITALS: BP 167/72; PULSE 67; RESP 17; TEMP 36.5; O2SAT 94
[2021-09-22] MEDS: ketorolac 30 mg/mL INJ IVP (20:16)
[2021-09-22] MEDS: citalopram 20 mg Tablet PO (20:16)
[2021-09-23] VITALS: BP 158/69; PULSE 65; RESP 17; TEMP 36.4; O2SAT 92
--- NOTE | 2021-09-23 00:54 | PC.NURSE ---
i reported low temp 97.5 to nurse
[2021-09-23] MEDS: vancomycin 1,500 MG/300 ML PIGGYBACK 200 MG IV (01:20)
[2021-09-23 04:00] VITALS: BP 152/64; PULSE 62; RESP 17; TEMP 36.6; O2SAT 90
[2021-09-23] MEDS: dexamethasone 10 mg/mL INJ IVP ×2 (04:06→11:13)
[2021-09-23] MEDS: enoxaparin 40 mg/0.4 mL Syringe SUBCUT (05:17)
[2021-09-23] MEDS: lisinopril 20 mg Tablet PO (05:17)
[2021-09-23 07:15] VITALS: BP 182/75; PULSE 60; RESP 16; TEMP 36.4; O2SAT 95
[2021-09-23] MEDS: hydroCHLOROthiazide 25 mg Tablet 50 MG PO (08:03)
[2021-09-23] MEDS: meloxicam 7.5 mg tablet 15 MG PO (08:03)
[2021-09-23] MEDS: tamsulosin 0.4 mg Capsule PO (08:03)
--- NOTE | 2021-09-23 09:16 | PC.SOCIAL ---
IMM Update Pg. 2 of IMM updated and reviewed with patient, who verbalized understanding. Copy provided.
[2021-09-23 09:30] LABS: Basophils # 0.1 10^3/uL (0.0-0.1); Basophils % 0.4 %; Eosinophils % 0.2 %; Hematocrit 47.3 % (42.0-52.0); Hemoglobin 16.2 g/dL (11.7-16.6); Lymphocytes # 1.5 10^3/uL (0.8-4.8); Lymphocytes % 7.5 %; Mean Corpuscular HGB Conc 34.2 g/dL (30.0-36.0); Mean Corpuscular Hemoglobin 31.3 pg (28.0-34.0); Mean Corpuscular Volume 91.3 fl (80-94); Mean Platelet Volume 9.1 fL (7.4-10.4); Monocytes # 0.6 10^3/uL (0.2-0.9); Monocytes % 3.1 %; Neutrophils % 83.1 %; Nucleated Red Blood Cells % 0 %; Platelet Count 247 10^3/cmm (130-400); Red Blood Count 5.18 10^6/uL (4.1-5.3); Red Cell Distribution Width 11.7 % (12.1-15.1); White Blood Count 19.3 10^3/uL (4.0-10.0)
[2021-09-23 09:49] LABS: Slide Review Slide Review Perform
[2021-09-23 10:08] LABS: Anion Gap 16.6 (5-19); Blood Urea Nitrogen 30 mg/dL (8-23); Calcium 8.4 mg/dL (8.5-10.5); Carbon Dioxide 22 mmol/L (22-29); Chloride 92 mmol/L (98-107); Glucose 170 mg/dL (65-115); Magnesium 2.3 mg/dL (1.7-2.3); Osmolality Calculated 272 mOsm/kg (285-295); Potassium 4.6 mmol/L (3.5-5.1); Sodium 126 mmol/L (136-145)
--- NOTE | 2021-09-23 10:13 | PC.PT ---
Patient refused due to diarrhea
[2021-09-23 11:20] VITALS: BP 126/70; PULSE 78; RESP 16; TEMP 36.4; O2SAT 94
[2021-09-23 12:11] LABS: Cortisol Random 0.83 ug/dL (2.47-19.5)
[2021-09-23 12:52] LABS: Urine Random Sodium 69 mmol/L
[2021-09-23] MEDS: amlodipine 10 mg Tablet PO (15:08)
[2021-09-23 15:37] VITALS: BP 121/65; PULSE 70; RESP 16; TEMP 36.6; O2SAT 93
--- NOTE | 2021-09-23 16:39 | PM.PN ---
Subjective Subjective: Interval history: Seen this morning. Patient states he is a little anxious because he does not like it when they draw his blood. He also reports feeling slightly lightheaded. Blood pressure was slightly low this morning. But later on I talked to nurse and patient was feeling better. Blood culture from 09/22 still positive for staph aureus. TTE negative. Discussed MARIANELA with patient and patient willing to proceed but tomorrow morning. Patient has concerns about financial aspect of his hospital stay. He states he has Medicare and is not sure what will be paid for. Vitals/I&O/Wt Last Vital Signs Temp 97.8 F 09/23/21 15:37 Pulse 70 09/23/21 15:37 Resp 16 09/23/21 15:37 BP 121/65 09/23/21 15:37 Pulse Ox 93 09/23/21 15:37 09/23/21 09/23/21 09/23/21 06:59 14:59 22:59 Intake Total 360 / 1380 800 / 800 60 / 860 Output Total 600 / 1350 1000 / 1000 Balance -240 / 30 -200 / -200 60 / -140 Physical Exam Narrative: EXAM NARRATIVE: General: Alert oriented x3, patient seen sitting up in recliner. HEENT: Normocephalic, atraumatic, EOMI, breathing comfortably. Cardio: Regular rate rhythm, normal S1-S2 Respiratory: Good bilateral air entry, no wheezes no rhonchi appreciated GI: Abdomen soft, nontender, bowel sounds + Extremities: no edema, no cyanosis Martinez catheter in place draining clear light yellow urine. Urinary Catheter Management^: Martinez: Cath Placed During This Visit: yes, but has since been removed by the nurse Reason for Continuing Indwelling Catheter: Decision to DC Catheter Urinary Catheter Date of Insertion: 09/16/21 Urinary Catheter Time of Insertion: 12:30 Date Urinary Catheter Removed: 09/17/21 Time Urinary Catheter Discontinued: 13:00 Data : 09/23/21 09:10 09/23/21 09:10 Micro: Microbiology 09/20/21 17:54 Blood Culture - Preliminary Blood Staphylococcus aureus 09/17/21 19:19 Blood Culture - Final Blood Staphylococcus aureus 09/18/21 04:50 Blood Culture - Final Blood Staphylococcus aureus 09/23/21 09:18 Blood Culture - Preliminary Blood SPECIMEN COLLECTED 09/23/21 09:10 Blood Culture - Preliminary Blood SPECIMEN COLLECTED A&P Assessment and plan (1) Bacteremia: Status: Acute (2) Urine retention: Status: Acute (3) Cauda equina injury without bone injury: Status: Acute (4) Attention deficit disorder (ADD) in adult: Status: Acute (5) Hypertension: Status: Acute (6) S/P laminectomy: Status: Acute Additional A&P Information #Cauda equina syndrome with urinary retention status post bilateral L4/5 laminectomy with partial fasciotectomy's. #Urinary retention status post Martinez catheter -Physical therapy to work with the patient ?We will talk to case management regarding rehab ?Patient did see Dr. Houser in his office in 2 weeks for suture removal. -Discussed with Dr. Corrina Walker's PA today. We will discontinue patient's dexamethasone IV at this point. He has had 5 days of therapy so far. #Staph aureus persistent bacteremia #Possible discitis/osteomyelitis/endocarditis ?Patient has remained afebrile so far. WBC count 19,000. Persistently bacteremic. -MRI at admission did show thickening and mild enhancement involving nerve roots from conus probably representing in the right is secondary to stenosis and compression upon the nerve root distally. Discitis or osteomyelitis or tumor identified. -Continue patient on cefazolin 2 g every 8 hours as per ID recommendations. TTE negative for endocarditis Will order MARIANELA for definitive rule out. N.p.o. at midnight MARIANELA to be done in the morning. Patient in agreement. We will talk to case management regarding patient's concerns of financial aspect of his hospital stay. #Hyponatremia sodium 126 ?Check urine sodium, cortisol level, TSH, urine osmolality, serum osmolality ?I have discontinued dexamethasone. He received for 5 days. Will rule out adrenal insufficiency ?Potential cosyntropin test in a.m. if cortisol low. ?We will monitor sodium. We will treat according to radiology. I have discontinued hydrochlorothiazide. Have started amlodipine 10 mg daily. #Hypertension #ADHD ?Continue home medications Full code DVT prophylaxis Low-salt diet. Patient updated in detail and he understands the plan and is okay with staying in the hospital. 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
[2021-09-23] MEDS: sennosides-docusate Tablet 1 TAB PO (17:48)
[2021-09-23] MEDS: docusate sodium 100 mg Capsule PO (17:48)
[2021-09-23 19:14] VITALS: BP 131/65; PULSE 70; RESP 18; TEMP 36.7; O2SAT 97
[2021-09-23] MEDS: citalopram 20 mg Tablet PO (20:36)
[2021-09-24] VITALS (11 sets, daily range): BP systolic 104–168; BP diastolic 61–86; PULSE 51–72; RESP 16–20; TEMP 36.3–36.7; O2SAT 94–100
--- NOTE | 2021-09-24 05:20 | PC.NURSE ---
SHIFT SUMMARY Has rested well tonight. No c/o pain or discomfort. Receiving IV antibiotics as ordered. Dressing to medial lower abdomen is clean & dry. Continues to have numbness in posterior upper legs, perineal area, scrotum and penis. Martinez in place with good urine output. Says he cannot control his bowels and sometimes when he gets up it just comes. Is hoping this will resolve NPO after midnight for MARIANELA today.
[2021-09-24] MEDS: enoxaparin 40 mg/0.4 mL Syringe SUBCUT (06:00)
[2021-09-24] MEDS: tamsulosin 0.4 mg Capsule PO (08:09)
[2021-09-24] MEDS: meloxicam 7.5 mg tablet 15 MG PO (08:09)
[2021-09-24] MEDS: multivitamin therapeutic Tablet 1 TAB PO (08:09)
[2021-09-24] MEDS: amlodipine 10 mg Tablet PO (08:09)
--- NOTE | 2021-09-24 08:20 | P.PN_ITS ---
Subjective Subjective: Interval history: Seen this morning. present at bedside. Patient has been n.p.o. overnight for his MARIANELA procedure today. He does have some concerns that he starting to have pain around his buttocks area from sitting too long. I have encouraged him to walk around. He requires assistance. We will discussed with nurse to assist him. I also encourage patient to change sides in bed so he offloads around the buttocks area. Blood cultures are still positive from the . MARIANELA to be done today. All questions answered. He denies any pain at surgical site. Vitals/I&O/Wt Last Vital Signs Temp 98.1 F 09/24/21 07:52 Pulse 61 09/24/21 07:52 Resp 16 09/24/21 07:52 BP 152/78 09/24/21 07:52 Pulse Ox 96 09/24/21 07:52 09/23/21 09/24/21 09/24/21 22:59 06:59 14:59 Intake Total 1010 / 1810 300 / 2110 Output Total 800 / 1800 750 / 2550 Balance 210 / 10 -450 / -440 Physical Exam Narrative: EXAM NARRATIVE: General: Alert oriented x3, patient seen laying in bed today with his laptop on the table. present at bedside. HEENT: Normocephalic, atraumatic, EOMI, breathing comfortably. Cardio: Regular rate rhythm, normal S1-S2 Respiratory: Good bilateral air entry, no wheezes no rhonchi appreciated Back: Bandage in place. GI: Abdomen soft, nontender, bowel sounds + Extremities: no edema, no cyanosis Martinez catheter in place draining clear light yellow urine. Urinary Catheter Management^: Martinez: Cath Placed During This Visit: yes, but has since been removed by the nurse Reason for Continuing Indwelling Catheter: Decision to DC Catheter Urinary Catheter Date of Insertion: 09/16/21 Urinary Catheter Time of Insertion: 12:30 Date Urinary Catheter Removed: 09/17/21 Time Urinary Catheter Discontinued: 13:00 Data : 09/24/21 09:18 09/24/21 09:18 Micro: Microbiology 09/23/21 09:18 Blood Culture - Preliminary Blood NEGATIVE TO DATE 09/23/21 09:10 Blood Culture - Preliminary Blood NEGATIVE TO DATE 09/20/21 17:54 Blood Culture - Preliminary Blood Staphylococcus aureus 09/17/21 19:19 Blood Culture - Final Blood Staphylococcus aureus 09/18/21 04:50 Blood Culture - Final Blood Staphylococcus aureus A&P Assessment and plan (1) Bacteremia: Status: Acute (2) Urine retention: Status: Acute (3) Cauda equina injury without bone injury: Status: Acute (4) Attention deficit disorder (ADD) in adult: Status: Acute (5) Hypertension: Status: Acute (6) S/P laminectomy: Status: Acute Additional A&P Information #Cauda equina syndrome with urinary retention status post bilateral L4/5 laminectomy with partial fasciotectomy's. -Surgery on September 16, 2021. Today is postop day 8 #Urinary retention status post Martinez catheter -Physical therapy to work with the patient ?We will potentially need rehab. ?Patient did see Dr. Houser in his office in 2 weeks for suture removal. If patient still here in the hospital by that time we will have him be seen inpatient. -Discussed with Dr. Corrina Walker's PA today. We will discontinue patient's dexamethasone IV at this point. He has had 5 days of therapy so far. #Staph aureus persistent bacteremia #Possible discitis/osteomyelitis/endocarditis ?Patient has remained afebrile so far. WBC count 17,000 today.. Persistently bacteremic. -MRI at admission did show thickening and mild enhancement involving nerve roots from conus probably representing in the right is secondary to stenosis and compression upon the nerve root distally. Discitis or osteomyelitis or tumor identified. -Continue patient on cefazolin 2 g every 8 hours as per ID recommendations. TTE negative for endocarditis Will order MARIANELA for definitive rule out. MARIANELA to be done today. If negative will consider doing MRI versus CT for isolating source of bacteremia. We will talk to case management regarding patient's concerns of financial aspect of his hospital stay. #Hyponatremia sodium 126 ?Check urine sodium, cortisol level, TSH, urine osmolality, serum osmolality ?I have discontinued dexamethasone. He received for 5 days. Will rule out adrenal insufficiency ?Potential cosyntropin test in a.m. if cortisol low. ?We will monitor sodium. We will treat according to radiology. I have discontinued hydrochlorothiazide. Continue amlodipine 10 daily ?We will start urea 15 g daily. 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 Urine osmolality still pending. #Hypertension #ADHD ?Continue home medications Full code DVT prophylaxis Low-salt diet. Patient updated in detail and he understands the plan and is okay with staying in the hospital. Updated at bedside today. Attestations Medical Necessity Statement*: Greater than 72-hour stay. Coding Level of Care Code Acute Farmworker Grain for Chg Fwd Diagnoses Bacteremia R78.81 Urine retention R33.9 Cauda equina injury without bone injury S34.3XXA Attention deficit disorder (ADD) in adult F98.8 Hypertension I10 S/P laminectomy Z98.890
--- NOTE | 2021-09-24 08:56 | P.ANESASSM_ITS ---
Pre-Anesthetic Assessment Pre-Anesthetic Assessment: Height/Weight: Height 1.78 m Weight 97.522 kg Temp Pulse Resp BP Pulse Ox 98.1 F 61 16 152/78 96 09/24/21 07:52 09/24/21 07:52 09/24/21 07:52 09/24/21 07:52 09/24/21 07:52 Preop Diagnosis: Cauda Equina Syndrome Proposed Procedure: Operation Date: 09/16/21 14:25 Proposed Procedures p Lumbar Spine Decompression(Left) - Nima Houser DO Operation Date: 09/24/21 12:00 Proposed Procedures p MARIANELA (Transesophageal Echocardiogram)(Not Applicable) - Mino Crocker MD Familial anesthetic complications: None Was Beta Karissa taken within 24 hours: N/A Was Clonidine taken within 24 hours: N/A Last intake: Intake Last Liquid Date 09/16/21 Last Liquid Time 05:30 Last Solid Date 09/15/21 Last Solid Time 18:00 Social: Social History: No alcohol and No tobacco Exam: Pre-Anes Outpt Exam: alert, oriented x 3, clear to auscultation bilaterally and regular rate & rhythm Airway: MP: 2 Dentition: Caps Additional comments: Full benavides CV/HEM: CV/HEM: HTN Comments: Echo 2020 CONCLUSIONS 1-Normal left ventricular cavity size. Normal left ventricular systolic function. No regional wall motion abnormalities. Left ventricular ejection fraction is estimated at 60 %. Grade I/IV diastolic dysfunction (abnormal relaxation filling pattern), normal to mildly elevated filling pressures. 2-There is no pericardial effusion. 3-No significant valve abnormalities. 4-Pulmonary artery systolic pressure is within normal limits. 5-There are no prior echocardiogram studies to compare. Metabolic: Comments: baceteremia, hyponatremia Musc/skel: Musc/skel: OA/DJD Neuropsych: Comments: cauda equina syndrome Anesthetic Plan: ASA status: 3 Anesthesia: General Risk of > 500 ml blood loss (7ml/kg in children): No Meds/Allergies Current Medications: Current Medications Generic Name Dose Route Start Last Admin Trade Name Freq PRN Reason Stop Dose Admin Amlodipine Besylat e 10 mg 09/23/21 15:00 09/24/21 08:09 Amlodipine 10 Mg Tablet PO 10 mg DAILY ISSAC Administration Bisacodyl 10 mg 09/18/21 09:00 09/24/21 08:09 Bisacodyl 10 Mg Supp VA Not Given DAILY ISSAC Citalopram Hydrobr omide 20 mg 09/16/21 21:00 09/23/21 20:36 Citalopram 20 Mg Tablet PO 20 mg BEDTIME ISSAC Administration Docusate Sodium 100 mg 09/16/21 18:00 09/24/21 08:09 Docusate Sodium 100 Mg Capsule PO Not Given BID ISSAC Enoxaparin Sodium 40 mg 09/17/21 06:00 09/24/21 06:00 Enoxaparin 40 Mg /0.4 Ml Syringe SUBCUT 40 mg Q24H ISSAC Administration Hydrochlorothiazid e 50 mg 09/17/21 09:00 09/23/21 08:03 Hydrochlorothiaz kelly 25 Mg Tablet PO 50 mg QD ISSAC Administration Cefazolin Sodium 2 ,000 mg/ 60 mls @ 100 mls/ hr 09/22/21 12:30 09/24/21 05:00 Sodium Chloride IV Infused Q8H ISSAC Infusion Lisinopril 20 mg 09/17/21 06:00 09/23/21 05:17 Lisinopril 20 Mg Tablet PO 20 mg QAM ISSAC Administration Meloxicam 15 mg 09/17/21 09:00 09/24/21 08:09 Meloxicam 7.5 Mg Tablet PO 15 mg QD ISSAC Administration Multivitamins Ther apeutic 1 tab 09/24/21 09:00 09/24/21 08:09 Multivitamin The rapeutic Tablet PO 1 tab DAILY ISSAC Administration Ondansetron HCl 4 mg 09/16/21 16:53 09/17/21 17:22 Ondansetron 2 Mg /Ml Sdv 2 Ml IVP 4 mg Q6H PRN Administration NAUSEA AND VOMITI NG Senna/Docusate Sod ium 1 tab 09/18/21 09:00 09/24/21 08:08 Sennosides-Docus ate Tablet PO Not Given BID [facility] Tamsulosin HCl 0.4 mg 09/18/21 09:00 09/24/21 08:09 Tamsulosin 0.4 M g Capsule PO 0.4 mg DAILY ISSAC Administration PFSH Anesthesia PFSH: Medical History ADHD Bone spur of foot Hypertension Surgical History H/O hernia repair umbilical Family History Other Cancer Denies family history of Diabetes CAD (coronary artery disease) Hypertension Stroke Social History Smoking and tobacco status: never smoked Alcohol intake: current Alcohol intake frequency: few times a week History of recent travel: No Data Anesthesia CBC & Chem 7: 09/23/21 09:10 09/23/21 09:10 Other Labs: Laboratory Results - last 48 hr 09/23/21 09/23/21 09/23/21 09:10 09:10 09:10 WBC 19.3 H RBC 5.18 Hgb 16.2 Hct 47.3 MCV 91.3 MCH 31.3 MCHC 34.2 RDW 11.7 L Plt Count 247 MPV 9.1 Neut % (Auto) 83.1 Lymph % (Auto) 7.5 [place] % (Auto) 3.1 Eos % (Auto) 0.2 Baso % (Auto) 0.4 Neut # (Auto) 16.00 H Lymph # (Auto) 1.5 [place] # (Auto) 0.6 Eos # (Auto) 0.0 Baso # (Auto) 0.1 Nucleated RBC % (auto) 0 Nucleated RBCs # 0.0 Sodium 126 L Potassium 4.6 Chloride 92 L Carbon Dioxide 22 Anion Gap 16.6 BUN 30 H Creatinine 0.8 GFR Calculation Not Reportable Glucose 170 H Calculated Osmolality 272 L Calcium 8.4 L Magnesium 2.3 TSH 0.30 Random Cortisol 0.83 L Cortisol Response Ur Random Sodium 09/23/21 09/23/21 12:00 13:23 WBC RBC Hgb Hct MCV MCH MCHC RDW Plt Count MPV Neut % (Auto) Lymph % (Auto) [place] % (Auto) Eos % (Auto) Baso % (Auto) Neut # (Auto) Lymph # (Auto) [place] # (Auto) Eos # (Auto) Baso # (Auto) Nucleated RBC % (auto) Nucleated RBCs # Sodium Cancelled Potassium Cancelled Chloride Cancelled Carbon Dioxide Cancelled Anion Gap Cancelled BUN Cancelled Creatinine Cancelled GFR Calculation Cancelled Glucose Cancelled Calculated Osmolality Cancelled Calcium Cancelled Magnesium TSH Random Cortisol Cortisol Response Cancelled Ur Random Sodium 69 Micro: Microbiology 09/20/21 17:54 Blood Culture - Preliminary Blood Staphylococcus aureus 09/17/21 19:19 Blood Culture - Final Blood Staphylococcus aureus 09/18/21 04:50 Blood Culture - Final Blood Staphylococcus aureus 09/23/21 09:18 Blood Culture - Preliminary Blood SPECIMEN COLLECTED 09/23/21 09:10 Blood Culture - Preliminary Blood SPECIMEN COLLECTED Cardiac Studies: Echocardiogram 09/22/21
[2021-09-24 09:57] LABS: Basophils % 0.2 %; Eosinophils # 0.1 10^3/uL (0.0-0.8); Eosinophils % 0.3 %; Hematocrit 46.5 % (42.0-52.0); Hemoglobin 16.1 g/dL (11.7-16.6); Lymphocytes % 17.1 %; Mean Corpuscular HGB Conc 34.6 g/dL (30.0-36.0); Mean Corpuscular Hemoglobin 31.3 pg (28.0-34.0); Mean Corpuscular Volume 90.3 fl (80-94); Mean Platelet Volume 9.3 fL (7.4-10.4); Monocytes # 1.2 10^3/uL (0.2-0.9); Monocytes % 6.9 %; Neutrophils # 12.63 10^3/uL (1.8-7.7); Neutrophils % 71.5 %; Nucleated Red Blood Cells % 0 %; Platelet Count 246 10^3/cmm (130-400); Red Blood Count 5.15 10^6/uL (4.1-5.3); Red Cell Distribution Width 11.7 % (12.1-15.1); White Blood Count 17.7 10^3/uL (4.0-10.0)
[2021-09-24 10:31] LABS: Anion Gap 17.3 (5-19); Blood Urea Nitrogen 33 mg/dL (8-23); Calcium 7.8 mg/dL (8.5-10.5); Carbon Dioxide 21 mmol/L (22-29); Chloride 91 mmol/L (98-107); Glucose 86 mg/dL (65-115); Magnesium 2.1 mg/dL (1.7-2.3); Osmolality Calculated 267 mOsm/kg (285-295); Potassium 4.3 mmol/L (3.5-5.1); Sodium 125 mmol/L (136-145)
[2021-09-24] MEDS: sodium chloride 0.9% 1,000 ML 100 ML IV ×2 (12:28→19:56)
--- NOTE | 2021-09-24 12:30 | ANE.PACU2 ---
Inpatient post-anesthesia follow up: Airway intact: Yes Vital signs: Temperature 98.2 F Pulse Rate 66 Respiratory Rate 16 Blood Pressure 143/70 Pulse Oximetry 98 Oxygen Delivery Me thod Nasal Cannula Oxygen Flow Rate 2 Fraction of Inspir ed Oxygen Hydration adequate: Yes Nausea and vomiting: No Pain level: 1 Mental status: Baseline
[2021-09-24] MEDS: ondansetron 2 mg/ML SDV 2 mL 4 MG IVP (13:32)
--- NOTE | 2021-09-24 15:26 | USCV_ITS ---
Gómez Stevens Age: 76 Gender: M : 1945 Exam Date: 09/24/2021 09:53 Ordering Phys: Elida Domingo MD Technologist: John Vasquez Exam Location: [facility] [place] Indication: R/o bacterial endocarditis BP: 152 / 78 HR: Rhythm: Sinus Technical Quality: MEASUREMENTS (Male / Female) Normal Values Medications Patient given IV sedation by anesthesia service, for details please refer to the anesthesia report. Complications None. Proc. Components FINDINGS Left Ventricle Normal left ventricular cavity size. Normal left ventricular systolic function. Left ventricular ejection fraction is estimated at 60 %. Right Ventricle The right ventricle is normal in size and function. Right Atrium The right atrium is normal in size. Left Atrium The left atrium is normal in size. LA Appendage The LA appendage is normal. IA Septum The interatrial septum is normal. Mitral Valve Mildly thickened mitral valve. Mitral annular calcification. No mitral valve stenosis. Mild mitral valve regurgitation. Aortic Valve Thickened aortic valve. No aortic valve stenosis. No aortic valve regurgitation. Tricuspid Valve Thickened tricuspid valve. There appeared to be subvalvular apparatus calcification cannot rule out vegetation clinical correlation advised. No tricuspid valve regurgitation. Pulmonic Valve Structurally normal pulmonic valve without significant stenosis. There is no pulmonic regurgitation. Pericardium Normal pericardium without effusion. Aorta Normal ascending aorta dimension. CONCLUSIONS This exam was completed on a [employer] Aplio 500 with a PET-512MC Transesophogeal transducer. 1-Normal left ventricular cavity size. Normal left ventricular systolic function. Left ventricular ejection fraction is estimated at 60 %. 2-Thickened tricuspid valve. There appeared to be subvalvular apparatus calcification cannot rule out vegetation clinical correlation advised. No tricuspid valve regurgitation. 3-Mildly thickened mitral valve. Mitral annular calcification. No mitral valve stenosis. Mild mitral valve regurgitation. 4-Thickened aortic valve. No aortic valve stenosis. No aortic valve regurgitation. 5-There is no pericardial effusion. Mino Crocker MD (Electronically Signed) Final Date: 25 September 2021 13:32 S
[2021-09-24] MEDS: urea 15 gm Powder PO (15:35)
--- NOTE | 2021-09-24 16:44 | PC.PT ---
PT attempted this AM twice before noon, but pt gone for a procedure. PT to continue to follow.
[2021-09-24] MEDS: tizanidine 4 mg Tablet PO (19:01)
--- NOTE | 2021-09-24 19:03 | PC.NURSE ---
ROUNDING c/o pain in right leg. Declined Tylenol but wanted to try the muscle relaxer instead. Given po Zanaflex
[2021-09-24] MEDS: citalopram 20 mg Tablet PO (20:37)
[2021-09-25 04:00] VITALS: BP 164/78; PULSE 57; RESP 20; TEMP 36.5; O2SAT 99
[2021-09-25 05:10] LABS: Basophils % 0.2 %; Eosinophils # 0.2 10^3/uL (0.0-0.8); Hematocrit 44.1 % (42.0-52.0); Hemoglobin 15.1 g/dL (11.7-16.6); Lymphocytes # 1.9 10^3/uL (0.8-4.8); Lymphocytes % 11.6 %; Mean Corpuscular HGB Conc 34.2 g/dL (30.0-36.0); Mean Corpuscular Hemoglobin 31.3 pg (28.0-34.0); Mean Corpuscular Volume 91.5 fl (80-94); Mean Platelet Volume 9.1 fL (7.4-10.4); Monocytes # 0.9 10^3/uL (0.2-0.9); Monocytes % 5.3 %; Neutrophils # 13.19 10^3/uL (1.8-7.7); Neutrophils % 79.5 %; Nucleated Red Blood Cells % 0 %; Platelet Count 203 10^3/cmm (130-400); Red Blood Count 4.82 10^6/uL (4.1-5.3); Red Cell Distribution Width 11.7 % (12.1-15.1); White Blood Count 16.6 10^3/uL (4.0-10.0)
[2021-09-25] MEDS: enoxaparin 40 mg/0.4 mL Syringe SUBCUT (05:24)
[2021-09-25 05:36] LABS: Anion Gap 14.6 (5-19); Blood Urea Nitrogen 32 mg/dL (8-23); Calcium 7.2 mg/dL (8.5-10.5); Carbon Dioxide 22 mmol/L (22-29); Chloride 95 mmol/L (98-107); Glucose 89 mg/dL (65-115); Osmolality Calculated 270 mOsm/kg (285-295); Potassium 4.6 mmol/L (3.5-5.1); Sodium 127 mmol/L (136-145)
[2021-09-25] MEDS: lisinopril 20 mg Tablet PO (05:40)
[2021-09-25] MEDS: sodium chloride 0.9% 1,000 ML 100 ML IV ×2 (05:40→19:38)
[2021-09-25 07:39] VITALS: BP 115/65; PULSE 59; RESP 16; TEMP 36.6; O2SAT 97
[2021-09-25] MEDS: amlodipine 10 mg Tablet PO (07:42)
[2021-09-25] MEDS: meloxicam 7.5 mg tablet 15 MG PO (07:43)
[2021-09-25] MEDS: docusate sodium 100 mg Capsule PO (07:43)
[2021-09-25] MEDS: multivitamin therapeutic Tablet 1 TAB PO (07:43)
[2021-09-25] MEDS: tamsulosin 0.4 mg Capsule PO (07:43)
[2021-09-25] MEDS: sennosides-docusate Tablet 1 TAB PO (07:43)
[2021-09-25 08:00] VITALS: BP 146/68; PULSE 63; RESP 16; TEMP 36.8; O2SAT 98
--- NOTE | 2021-09-25 10:21 | PC.SOCIAL ---
IMM Update Pg. 2 of IMM updated and reviewed with patient, who verbalized understanding. Copy provided.
[2021-09-25] MEDS: sodium chloride 0.9% 1,000 ML 75 ML IV ×2 (10:41→20:23)
[2021-09-25 11:32] VITALS: BP 153/61; PULSE 77; RESP 16; TEMP 36.8; O2SAT 98
--- NOTE | 2021-09-25 14:45 | PM.PN ---
Subjective Subjective: Interval history: Seen this morning. Patient states he would like to get out of bed but requires assistance. I will discussed with nurse regarding this. He is doing well denies any shortness of breath, chest pain, abdominal pain. Does still have some back pain because he states he sitting. He also still has a urinary catheter. He states that sometimes he cannot tell if he is having a bowel movement. Has no other complaints or concerns today. Blood cultures from the have been negative. I discussed with the patient. We will be placing a PICC line and he is okay with it. Vitals/I&O/Wt Last Vital Signs Temp 98.2 F 09/25/21 11:32 Pulse 77 09/25/21 11:32 Resp 16 09/25/21 11:32 BP 153/61 09/25/21 11:32 Pulse Ox 98 09/25/21 11:32 09/24/21 09/25/21 09/25/21 22:59 06:59 14:59 Intake Total 1166.667 / 3798.765 7180.333 / 2600.000 1440 / 1440 Output Total 950 / 950 1000 / 1950 700 / 700 Balance 216.667 / 276.667 373.333 / 650.000 740 / 740 Physical Exam Narrative: EXAM NARRATIVE: General: Alert oriented x3, patient seen laying in bed today appearing comfortable. HEENT: Normocephalic, atraumatic, EOMI, breathing comfortably. Cardio: Regular rate rhythm, normal S1-S2 Respiratory: Good bilateral air entry, no wheezes no rhonchi appreciated Back: Bandage in place. GI: Abdomen soft, nontender, bowel sounds + Extremities: no edema, no cyanosis Martinez catheter in place draining clear light yellow urine. Urinary Catheter Management^: Martinez: Cath Placed During This Visit: yes, but has since been removed by the nurse Reason for Continuing Indwelling Catheter: Decision to DC Catheter Urinary Catheter Date of Insertion: 09/16/21 Urinary Catheter Time of Insertion: 12:30 Date Urinary Catheter Removed: 09/17/21 Time Urinary Catheter Discontinued: 13:00 Data : 09/25/21 04:40 09/25/21 04:40 Micro: Microbiology 09/25/21 04:40 Blood Culture - Preliminary Blood SPECIMEN COLLECTED 09/25/21 04:40 Blood Culture - Preliminary Blood SPECIMEN COLLECTED 09/23/21 09:18 Blood Culture - Preliminary Blood NEGATIVE TO DATE 09/23/21 09:10 Blood Culture - Preliminary Blood NEGATIVE TO DATE A&P Assessment and plan (1) Bacteremia: Status: Acute (2) Urine retention: Status: Acute (3) Cauda equina injury without bone injury: Status: Acute (4) Attention deficit disorder (ADD) in adult: Status: Acute (5) Hypertension: Status: Acute (6) S/P laminectomy: Status: Acute Additional A&P Information #Cauda equina syndrome with urinary retention status post bilateral L4/5 laminectomy with partial fasciotectomy's. -Surgery on September 16, 2021. Today is postop day 9 #Urinary retention status post Martinez catheter -Physical therapy to work with the patient ?We will potentially need rehab. ?Patient did see Dr. Houser in his office in 2 weeks for suture removal. If patient still here in the hospital by that time we will have him be seen inpatient. -Dexamethasone was discontinued on 09/22. #Staph aureus persistent bacteremia #Possible discitis/osteomyelitis/endocarditis ?Patient has remained afebrile so far. WBC count 17,000 today.. Persistently bacteremic. -MRI at admission did show thickening and mild enhancement involving nerve roots from conus probably representing in the right is secondary to stenosis and compression upon the nerve root distally. Discitis or osteomyelitis or tumor identified. -Continue patient on cefazolin 2 g every 8 hours as per ID recommendations. TTE negative for endocarditis Will order MARIANELA for definitive rule out. MARIANELA to be done today. If negative will consider doing MRI versus CT for isolating source of bacteremia. We will talk to case management regarding patient's concerns of financial aspect of his hospital stay. #Hyponatremia sodium 127 ?Check urine sodium, cortisol level, TSH, urine osmolality, serum osmolality ?I have discontinued dexamethasone. He received for 5 days. ?We will monitor sodium. We will treat according to radiology. I have discontinued hydrochlorothiazide. Continue amlodipine 10 daily ?Patient received 1 dose of urea 15 g daily sodium mainly came at 1 point. ?I will start him on normal saline 75 cc/h. Sodium has improved to 127 today. I will continue for now. Once urine osmolality is back we will treat accordingly once etiology is confirmed. #Hypertension #ADHD ?Continue home medications Full code DVT prophylaxis Low-salt diet. Patient updated in detail and he understands the plan and is okay with staying in the hospital. Updated at bedside today. Attestations Medical Necessity Statement*: Greater than 48-hour stay. Coding Level of Care Code Acute Adaptive Physical Education Specialist for Chg Fwd Diagnoses Bacteremia R78.81 Urine retention R33.9 Cauda equina injury without bone injury S34.3XXA Attention deficit disorder (ADD) in adult F98.8 Hypertension I10 S/P laminectomy Z98.890
[2021-09-25 15:53] VITALS: BP 143/70; PULSE 66; RESP 16; TEMP 36.8; O2SAT 98
[2021-09-25 20:00] VITALS: BP 132/56; PULSE 67; RESP 17; TEMP 36.6; O2SAT 97
[2021-09-25] MEDS: citalopram 20 mg Tablet PO (20:23)
[2021-09-25] MEDS: tizanidine 4 mg Tablet PO (20:29)
[2021-09-26] VITALS: BP 128/67; PULSE 59; RESP 16; TEMP 36.4; O2SAT 97
[2021-09-26 01:59] VITALS: O2SAT 97
[2021-09-26 04:00] VITALS: BP 127/67; PULSE 59; RESP 17; TEMP 36.7; O2SAT 97
[2021-09-26] MEDS: enoxaparin 40 mg/0.4 mL Syringe SUBCUT (05:25)
[2021-09-26] MEDS: lisinopril 20 mg Tablet PO (05:25)
[2021-09-26 06:34] LABS: Basophils % 0.2 %; Eosinophils # 0.2 10^3/uL (0.0-0.8); Eosinophils % 1.4 %; Hematocrit 41.1 % (42.0-52.0); Hemoglobin 14.2 g/dL (11.7-16.6); Lymphocytes # 1.6 10^3/uL (0.8-4.8); Mean Corpuscular HGB Conc 34.5 g/dL (30.0-36.0); Mean Corpuscular Hemoglobin 31.9 pg (28.0-34.0); Mean Corpuscular Volume 92.4 fl (80-94); Mean Platelet Volume 9.2 fL (7.4-10.4); Monocytes # 0.8 10^3/uL (0.2-0.9); Monocytes % 5.7 %; Neutrophils # 10.46 10^3/uL (1.8-7.7); Neutrophils % 78.7 %; Nucleated Red Blood Cells % 0 %; Platelet Count 163 10^3/cmm (130-400); Red Blood Count 4.45 10^6/uL (4.1-5.3); Red Cell Distribution Width 11.9 % (12.1-15.1); White Blood Count 13.3 10^3/uL (4.0-10.0)
[2021-09-26 06:57] LABS: Blood Urea Nitrogen 22 mg/dL (8-23); Calcium 7.5 mg/dL (8.5-10.5); Carbon Dioxide 24 mmol/L (22-29); Chloride 100 mmol/L (98-107); Glucose 85 mg/dL (65-115); Magnesium 2.3 mg/dL (1.7-2.3); Osmolality Calculated 273 mOsm/kg (285-295); Sodium 130 mmol/L (136-145)
[2021-09-26 07:02] LABS: Anion Gap 10.5 (5-19); Potassium 4.5 mmol/L (3.5-5.1)
[2021-09-26 08:00] VITALS: BP 171/69; PULSE 64; RESP 18; TEMP 36.6; O2SAT 96
[2021-09-26] MEDS: tamsulosin 0.4 mg Capsule PO (08:06)
[2021-09-26] MEDS: amlodipine 10 mg Tablet PO (08:06)
[2021-09-26] MEDS: docusate sodium 100 mg Capsule PO (08:06)
[2021-09-26] MEDS: sennosides-docusate Tablet 1 TAB PO (08:07)
[2021-09-26] MEDS: meloxicam 7.5 mg tablet 15 MG PO (08:07)
[2021-09-26] MEDS: multivitamin therapeutic Tablet 1 TAB PO (08:07)
--- NOTE | 2021-09-26 10:21 | PC.CHAP ---
Pastoral Care Encounter/Spiritual Assessment Type of Contact [] Declined contract project manager visit [] Patient/Family/Request visit [] Outpatient visit [] Follow-up visit [] Physician referral [] Code/Alert [x] Routine visit [] Staff referral [] Actively dying [] Patient sleeping [] Family support [] [] Out of room [] Palliative care [] [] Receiving care in room [] Pre-surgical visit [] Trauma [] Long length of stay [] ICU visit [] Other: Relational/Emotional Strength [x] Patient feels connected with others/family/visitors/staff [] Distress [] Loneliness/isolation [] Abandonment Spirituality of Patient x[x] Person of Tanisha [] Attends Baptism of their Tanisha [x] Believes in Prayer [] Reads Bible or Baptist materials [] There are Spiritual issues to be addressed Punch Press Feeder Interventions [x] Prayer [x] Active listening [x] Non-anxious presence [] Spiritual/emotional support [] Crisis/trauma care [] Spiritual counseling [] Bereavement support [] Provided bereavement packet [] Provided Bible/devotional materials [] Provided toy/stuffed animal, coloring book to patient or family member [] Provided Communion [] Anointing/Speed [] Salvation [] Completed spiritual assessment [] Other: Impact on Illness or Injury [] Angry [] Fearful [] Anxious [] Often cries [] Exhaustion [] Unable to work [] Unable to attend jainism [] Unable to walk/stand [] Unable to read [] Unable to drive [] Unable to eat/drink [] Unable to sleep [] Unable to be with family [] Patient intubated [] Other: Summary Time spent with patient 10 min
--- NOTE | 2021-09-26 12:24 | XRR_ITS ---
PROCEDURE INFORMATION: Exam: XR Chest Exam date and time: 09/26/2021 12:24 PM Age: 76 years old Clinical indication: Status post PICC placement. TECHNIQUE: Imaging protocol: XR of the chest. Views: 1 view. COMPARISON: CR Shoulder 2+ views LEFT* [id number] 12/12/2018 10:48 AM FINDINGS: Tubes, catheters and devices: Left PICC with tip at the SVC/right atrial junction. Lungs: There are nodular foci at the left base measuring up to 7.5 mm. No pulmonary consolidation. Pleural spaces: No pleural effusion.. No pneumothorax. Heart/Mediastinum: The heart appears enlarged. No gross evidence of pneumomediastinum. Bones/joints: No gross fracture. XR/XR chest 1V portable [id number] IMPRESSION: 1. Left PICC with tip at the SVC/right atrial junction. 2. There are nodular foci at the left base measuring up to 7.[address] chest to better characterize. 3. Cardiomegaly. Radiation Dose CTDIVOL = (mGy): DLP = (mGy-cm)
[2021-09-26 12:27] LABS: Osmolality Urine 942 mOsm/kg (50-1200)
[2021-09-26] MEDS: sodium chloride 0.9% 1,000 ML 75 ML IV (13:40)
[2021-09-26 14:09] VITALS: BP 171/69; PULSE 64; RESP 18; TEMP 36.6; O2SAT 96
--- NOTE | 2021-09-26 15:18 | P.PN_ITS ---
Subjective Subjective: Interval history: Infectious disease follow up note Blood cx remains clear since 09/20 afebrile, hemodynamics stable WBC trending down MARIANELA completed, results below Vitals/I&O/Wt Last Vital Signs Temp 97.8 F 09/26/21 14:09 Pulse 64 09/26/21 14:09 Resp 18 09/26/21 14:09 BP 171/69 09/26/21 14:09 Pulse Ox 96 09/26/21 14:09 09/26/21 09/26/21 09/26/21 06:59 14:59 22:59 Intake Total 60 / 2664.167 1440 / 1440 Output Total 650 / 1900 Balance -590 / 110.383 0093 / 1440 Physical Exam Urinary Catheter Management^: Martinez: Cath Placed During This Visit: yes, but has since been removed by the nurse Reason for Continuing Indwelling Catheter: Decision to DC Catheter Urinary Catheter Date of Insertion: 09/16/21 Urinary Catheter Time of Insertion: 12:30 Date Urinary Catheter Removed: 09/17/21 Time Urinary Catheter Discontinued: 13:00 Data : 09/26/21 06:03 09/26/21 06:03 Other Labs: MARIANELA 09/25 CONCLUSIONS: This exam was completed on a [employer] Aplio 500 with a PET-512MC Transesophogeal transducer. 1-Normal left ventricular cavity size. Normal left ventricular systolic function. Left ventricular ejection fraction is estimated at 60 %. 2-Thickened tricuspid valve. There appeared to be subvalvular apparatus calcification cannot rule out vegetation clinical correlation advised. No tricuspid valve regurgitation. 3-Mildly thickened mitral valve. Mitral annular calcification. No mitral valve stenosis. Mild mitral valve regurgitation. 4-Thickened aortic valve. No aortic valve stenosis. No aortic valve regurgitation. 5-There is no pericardial effusion. Micro: Microbiology 09/20/21 17:54 Blood Culture - Final Blood Staphylococcus aureus 09/21/21 05:15 Blood Culture - Final Blood NO GROWTH AFTER 5 DAYS 09/21/21 05:15 Blood Culture - Final Blood NO GROWTH AFTER 5 DAYS 09/25/21 04:40 Blood Culture - Preliminary Blood NEGATIVE TO DATE 09/25/21 04:40 Blood Culture - Preliminary Blood NEGATIVE TO DATE 09/20/21 17:58 Blood Culture - Final Blood NO GROWTH AFTER 5 DAYS A&P Assessment and plan (1) MSSA (methicillin susceptible Staphylococcus aureus) septicemia: Patient presenting with cauda equina syndrome and + blood cx on 09/17, 09/18 , 09/20 and also + urine cx for MSSA on 09/15 (presumable bacteremic on 09/15). Together with MRI findings clinical picture concerning for osteomyelitis/Discitis, tough to ascertain at this time how long patient has been bacteremic. MARIANELA completed, subvalvular TV calcification noted, vegetation cannot be completely excluded at this time. Discussed results with Dr. Crocker- no frankly mobile significant echodensity noted at this time. Will plan to repeat MARIANELA in 6- 8 weeks when completing abx course, sooner if clinical change. s/p urgent L4-L5 laminectomy on 09/16, no annamarie purulence encountered, no hardware in place per OP note. No culture or path results available from OR. Blood cx now clear since 09/20 Continueiv cefazolin 2g iv q8h for at least the next 6 weeks. Picc line placed today Tolerating iv cefazolin Baseline liver function added on to am labs today Follow up in ID clinic on Sep Status: Acute (2) Discitis of lumbosacral region: Status: Acute (3) Endocarditis due to methicillin susceptible Staphylococcus aureus (MSSA): This is a POSSIBLE diagnosis at this time. Plan to repeat MARIANELA in 6-8 weeks after completing iv abx course. Status: Acute Attestations Medical Necessity Statement*: per admitting note Coding Level of Care Code Acute Call Center Team Leader for [facility] Fwjoycelyn Diagnoses MSSA (methicillin susceptible Staphylococcus aureus) septicemia A41.01 Discitis of lumbosacral region M46.47 Endocarditis due to methicillin susceptible Staphylococcus aureus (MSSA) I33.0; B95.61
--- NOTE | 2021-09-26 15:20 | PM.DCS ---
Discharge Providers Date of Admission: 09/16/21 16:15 Date of Discharge: September 26, 2021 Attending Provider at Admission: Nima Houser DO Attending Provider at Discharge: Mino Sepulveda MD Primary Care Provider: Akilah Mcgarry APN Diagnoses at Discharge Discharge Diagnosis (1) MSSA (methicillin susceptible Staphylococcus aureus) septicemia: Status: Acute (2) Discitis of lumbosacral region: Status: Acute Reason for Visit Reason for Visit: FALL Hospital Course Hospital Course Patient was admitted on 09/16 by orthopedic service for management of epidural abscess. Patient was exhibiting signs of cauda equina syndrome. He underwent bilateral L4-L5 laminectomy with partial facetectomies. Hospitalist service was consulted for postoperative management. After the surgery patient was reluctant to go to the rehab. Postoperative urine culture positive for staph aureus, considering the fact that it is not a common UTI microorganism, I requested blood cultures which came back positive for staph aureus, MSSA. Patient was started on appropriate IV antibiotics however his repeat blood cultures were also positive. Transesophageal echo showed EF 60%, tricuspid valve calcification was noted however vegetation not ruled out. . For transesophageal echo within 6 to 8 weeks after finishing IV antibiotic course. Endocarditis has not been ruled out completely. Culture positive on 09/18, 09/20. They were negative later on. PICC line was placed on 09/26, Dr. José Miguel VENTURA consulted was notified who will follow up with this patient outpatient, October 04. He will be discharged on cefazolin 2 g every 8 hour 6-week regimen. Of note, postoperatively patient still has bowel incontinence. I did discuss postoperative persistent neurological symptoms with orthopedic service, Dr. Houser recommended following up with outpatient clinic. He thinks neurological recovery will take some time and he will be able to have control over his bladder and bowel in next few weeks. He will be discharged with Martinez catheter. He failed voiding trial. Outpatient follow-up with Dr. Khan also recommended, teaching was done in the hospital regarding Martinez catheter and urine bag handling. During this hospitalization he also developed hyponatremia which responded well to gentle fluid hydration. He was hypertensive throughout his hospitalization, his antihypertensive regimen was readjusted. He was kept on Decadron for his cauda equina symptoms which probably showed low random cortisol level. He did not exhibit any signs of adrenal insufficiency during this hospitalization. TSH was normal. Physical Exam Narrative: EXAM NARRATIVE: Pleasant cooperative male Sitting in a chair Eating breakfast Saturating well on room air Urine catheter draining concentrated urine S1, S2 Abdomen soft Patient is able to use walker and ambulate EOMI, PERRLA Urinary Catheter Management^: Martinez: Cath Placed During This Visit: yes, but has since been removed by the nurse Reason for Continuing Indwelling Catheter: Decision to DC Catheter Urinary Catheter Date of Insertion: 09/16/21 Urinary Catheter Time of Insertion: 12:30 Date Urinary Catheter Removed: 09/17/21 Time Urinary Catheter Discontinued: 13:00 Discharge Data Data Completed and Pending: Completed Studies During Hospitalization Category Date Time Status CXRP [XR chest 1V portable [id number]] R outine Exams 09/26/21 12:24 Completed XR lumbar spine 1 V [id number] Routine Exams 09/16/21 16:44 Completed MR lumbar spine w o/w con [id number] Stat MRI 09/16/21 07:11 Completed CV. echo complete * [id number] Routine Ultrasound 09/22/21 12:00 Completed CV. echo transeso phageal [id number] Rout ine Ultrasound 09/24/21 15:26 Completed Pending at discharge Category Date Time Status Blood Culture Sta t Lab 09/23/21 09:18 Results Blood Culture Sta t Lab 09/25/21 04:40 Results Osmolality Serum Stat Lab 09/23/21 13:23 Received Labs from last 24 hours 09/26/21 09/26/21 09/23/21 06:03 06:03 12:00 WBC 13.3 H RBC 4.45 Hgb 14.2 Hct 41.1 L MCV 92.4 MCH 31.9 MCHC 34.5 RDW 11.9 L Plt Count 163 MPV 9.2 Neut % (Auto) 78.7 Lymph % (Auto) 12.0 Randall % (Auto) 5.7 Eos % (Auto) 1.4 Baso % (Auto) 0.2 Neut # (Auto) 10.46 H Lymph # (Auto) 1.6 Randall # (Auto) 0.8 Eos # (Auto) 0.2 Baso # (Auto) 0.0 Nucleated RBC % (a uto) 0 Nucleated RBCs # 0.0 Sodium 130 L Potassium 4.5 Chloride 100 Carbon Dioxide 24 Anion Gap 10.5 BUN 22 Creatinine 0.6 L GFR Calculation Not Reportable Glucose 85 Calculated Osmolal ity 273 L Calcium 7.5 L Magnesium 2.3 Urine Osmolality 942 Vitals: Last Vital Signs Temp 97.8 F 09/26/21 14:09 Pulse 64 09/26/21 14:09 Resp 18 09/26/21 14:09 BP 171/69 09/26/21 14:09 Pulse Ox 96 09/26/21 14:09 Discharge Plan Discharge Patient Disposition: Home Condition: Stable Prescriptions: New tamsulosin 0.4 mg capsule 0.4 mg PO DAILY Qty: 30 RF: 3 cefazolin 1 gram recon soln 2 g IV Q8H Qty: 25 RF: 0 Senna-S 8.6-50 mg tablet 1 tab-cap PO DAILY Qty: 30 RF: 0 amlodipine 10 mg tablet 10 mg PO DAILY Qty: 30 RF: 3 Continued lisinopril 20 mg tablet 20 mg PO QAM RF: 0 triamcinolone acetonide 0.1 % cream 1 applic TOPICAL TID PRN (Reason: unknown) RF: 0 meloxicam 15 mg tablet 15 mg PO QAM RF: 0 acetaminophen [Tylenol 8 Hour] 650 mg tablet extended release 1,300 mg PO BEDTIME RF: 0 miconazole nitrate 2 % aerosol,spray 1 spray TOPICAL DAILY PRN (Reason: unknown) RF: 0 hesperidin-diosmin 100-500 mg tablet 1 tab PO BID RF: 0 psyllium husk 0.4 gram capsule 24 gm PO DAILY RF: 0 wheat bran 3 gram/9.3 gram powder 16 gm PO DAILY RF: 0 flaxseed Powder See Rx Instructions .ROUTE .COMPLEX RF: 0 cholecalciferol (vitamin D3) [Vitamin D3] 25 mcg (1,000 unit) capsule 25 mcg PO DAILY RF: 0 cinnamon bark [Cinnamon] 500 mg capsule 1,000 mg PO DAILY RF: 0 hydrocodone-acetaminophen 5-325 mg tablet 1 tab PO Q6H PRN (Reason: pain) Qty: 15 RF: 0 tizanidine 4 mg capsule 4 mg PO Q8H PRN (Reason: muscle spasticity) Qty: 20 RF: 0 multivitamin Tablet 1 tab PO DAILY RF: 0 bran Flakes See Rx Instructions .ROUTE .COMPLEX RF: 0 citalopram 20 mg tablet 20 mg PO BEDTIME RF: 0 Percocet 5-325 mg Tablet 1 tab PO ONCE Qty: 20 RF: 0 Discontinued hydrochlorothiazide 50 mg tablet 50 mg PO QAM RF: 0 sulfamethoxazole-trimethoprim [Bactrim DS] 800-160 mg tablet 1 tab PO DAILY 7 Days Qty: 14 RF: 0 methylprednisolone [Medrol (Adriel)] 4 mg tablets,dose pack See Rx Instructions .ROUTE .COMPLEX Qty: 21 RF: 0 Discharge Orders: Discharge Order (Routine); Ordered 09/26/21 Ordered By: Mino Sepulveda Other Ambulatory Orders: DME: Commode (Order) Location: None Selected Ordered By: Nima Houser DME: Walker (Order) Location: None Selected Ordered By: Nima Houser DME: Wheelchair (Order) Location: None Selected Ordered By: Nima Houser Physical Therapy Eval and Treat Outpatient (Order) Timeframe: 3 Weeks Facility: [facility] - Location: Physical Therapy Ordered By: Nima Houser Referrals: [facility] [Outside] (Your IV antibiotic, cefazolin, will be provided by [facility]. They will deliver these to your home with intructions on how to store medication. ) [facility] [Outside] [facility] ([facility]) [Outside] ([facility] will be calling you by phone to arrange a time to start services. ) Nima Houser DO [Physician] - 10/11/21 2:15 pm Matt Khan MD [Physician] - 1-3 days (Urology will contact PT for a follow-up appointment.) Jana Valdez MD [Hospitalist] - 10/04/21 Discharge Diet: Cardiac Discharge Activity: Increase activity as tolerated Patient Instructions: Hypertension, MRSA (Methicillin-Resistant Staphylococcus Aureus) (DC), Urinary Urgency and Frequency (DC), Opioid Safety, Urinary Tract Infection - Men Discharge Attestations Time Spent in Discharge Care*: less than 30 min Quality Metrics Clinical Quality Measures During this hospital stay, did patient experience: None Coding Level of Care Code Acute Chg FW DC note Diagnoses MSSA (methicillin susceptible Staphylococcus aureus) septicemia A41.01 Discitis of lumbosacral region M46.47
[2021-09-26 15:28] LABS: Osmolality Serum 280 mOsm/kg (278-305)
== END 2021-09-26 16:45 | disposition home health service (06) | DRG 28 ==
LOC: ER 12:37 → OR 13:04 → MEDSURG 09-17 06:49
PROVIDERS: Internal Medicine; Student in an Organized Health Care Education/Training Program; Admitting Provider Orthopaedic Surgery; Emergency Provider Family Medicine; PCP Nurse Practitioner; Visit Provider Internal Medicine
PROC: 00NY0ZZ Release Lumbar Spinal Cord, Open Approach (ICD-10-PCS; CPT 63005; principal; 2021-09-16 14:15)
DX: S34.3XXA Injury of cauda equina, initial encounter (principal); G06.1 Intraspinal abscess and granuloma; G83.4 Cauda equina syndrome; E87.1 Hypo-osmolality and hyponatremia; I38 Endocarditis, valve unspecified; W17.89XA Other fall from one level to another, initial encounter; B95.61 Methicillin susceptible Staphylococcus aureus infection as the cause of diseases classified elsewhere; F90.9 Attention-deficit hyperactivity disorder, unspecified type; I10 Essential (primary) hypertension; Z88.1 Allergy status to other antibiotic agents; M46.47 Discitis, unspecified, lumbosacral region; Z79.891 Long term (current) use of opiate analgesic
CPT/HCPCS: 36415; 36569; 51702; 51798; 71045; 72020; 72131; 72158; 72170; 76000; 80048; 80053; 80202; 81001; 82533; 83735; 83930; 83935; 84145; 84300; 84443; 85025; 86140; 87040; 87077; 87086; 87186; 87205; 93306; 93312; 93320; 93325; 96372; 96374; 96375; 97110; 97116; 97161; 97530; 99284; 99285; 99291; A9577; J0330; J0690; J1100; J1170; J1200; J1650; J1885; J2270; J2360; J2370; J2405; J2704; J2710; J3010; J3370; J3490; J7030; P9041

== ENCOUNTER 2021-10-10 19:38 | Outpatient (CLI) | payer MEDICARE, BC, OTHER, SELFPAY | END 2021-10-10 19:39 | disposition home or self-care (01) | PROVIDERS: PCP Nurse Practitioner; Visit Provider Nurse Practitioner Family | DX: R33.9 Retention of urine, unspecified (principal) | CPT/HCPCS: 80053; 85025; 87077; 87086; 87184 ==

== ENCOUNTER 2021-10-20 13:31 | Outpatient (CLI) | payer MEDICARE, BC, OTHER, SELFPAY ==
[2021-10-20 13:46] LABS: Hematocrit 38.4 % (42.0-52.0); Mean Corpuscular HGB Conc 33.9 g/dL (30.0-36.0); Mean Corpuscular Hemoglobin 31.9 pg (28.0-34.0); Mean Corpuscular Volume 94.1 fl (80-94); Mean Platelet Volume 10.2 fL (7.4-10.4); Platelet Count 140 10^3/cmm (130-400); Red Blood Count 4.08 10^6/uL (4.1-5.3); Red Cell Distribution Width 12.9 % (12.1-15.1); White Blood Count 4.6 10^3/uL (4.0-10.0)
[2021-10-20 14:01] LABS: Alanine Aminotransferase 181 U/L (0-41); Albumin Level 3.6 g/dL (3.5-5.2); Alkaline Phosphatase 103 IU/L (40-130); Blood Urea Nitrogen 9 mg/dL (8-23); Calcium 8.3 mg/dL (8.5-10.5); Carbon Dioxide 21 mmol/L (22-29); Chloride 100 mmol/L (98-107); Globulin 1.8 g/dL (1.3-4.6); Glucose 114 mg/dL (65-115); Osmolality Calculated 278 mOsm/kg (285-295); Sodium 134 mmol/L (136-145); Total Bilirubin 1.7 mg/dL (0.15-1.2); Total Protein 5.4 g/dL (6.6-8.7)
[2021-10-20 14:06] LABS: Absolute Segmented Neutrophil 3.1 10/cmm (1.6-7.1); Lymphocytes 17 %; Monocytes Absolute 0.3 10^3/cmm (0.1-0.6); Segmented Neutrophils 67 %; Total Cells Counted 100 (0-100)
[2021-10-20 14:07] LABS: Absolute Neutrophil 3.1 10^3/cmm (1.4-6.5); Eosinophils 2 %; Lymphocytes Absolute 1.1 10^3/cmm (1.2-3.4); Platelet Estimate Normal (Normal)
[2021-10-20 14:20] LABS: Anion Gap 17.6 (5-19); Aspartate Amino Transferase 403 U/L (0-40); Potassium 4.6 mmol/L (3.5-5.1)
== END 2021-10-20 13:32 | disposition home or self-care (01) ==
LOC: LAB 13:32
PROVIDERS: PCP Nurse Practitioner; Visit Provider Student in an Organized Health Care Education/Training Program
DX: A41.01 Sepsis due to Methicillin susceptible Staphylococcus aureus (principal)
CPT/HCPCS: 80053; 85007; 85027

== ENCOUNTER 2021-10-24 10:12 | Outpatient (CLI) | payer MEDICARE, OTHER, SELFPAY ==
[2021-10-24 10:44] LABS: Basophils # 0.1 10^3/uL (0.0-0.1); Basophils % 0.8 %; Eosinophils # 0.1 10^3/uL (0.0-0.8); Hematocrit 40.2 % (42.0-52.0); Hemoglobin 13.1 g/dL (11.7-16.6); Lymphocytes # 1.1 10^3/uL (0.8-4.8); Lymphocytes % 18.1 %; Mean Corpuscular HGB Conc 32.6 g/dL (30.0-36.0); Mean Corpuscular Hemoglobin 31.2 pg (28.0-34.0); Mean Corpuscular Volume 95.7 fl (80-94); Mean Platelet Volume 10.4 fL (7.4-10.4); Monocytes # 0.6 10^3/uL (0.2-0.9); Neutrophils # 4.14 10^3/uL (1.8-7.7); Nucleated Red Blood Cells % 0 %; Platelet Count 142 10^3/cmm (130-400); Red Cell Distribution Width 13.2 % (12.1-15.1); White Blood Count 6.1 10^3/uL (4.0-10.0)
[2021-10-24 11:09] LABS: Alanine Aminotransferase 29 U/L (0-41); Albumin Level 3.7 g/dL (3.5-5.2); Alkaline Phosphatase 78 IU/L (40-130); Aspartate Amino Transferase 37 U/L (0-40); Blood Urea Nitrogen 10 mg/dL (8-23); Calcium 7.9 mg/dL (8.5-10.5); Carbon Dioxide 23 mmol/L (22-29); Chloride 101 mmol/L (98-107); Globulin 2.1 g/dL (1.3-4.6); Glucose 100 mg/dL (65-115); Osmolality Calculated 283 mOsm/kg (285-295); Sodium 137 mmol/L (136-145); Total Bilirubin 0.5 mg/dL (0.15-1.2); Total Protein 5.8 g/dL (6.6-8.7)
== END 2021-10-24 10:13 | disposition home or self-care (01) ==
LOC: LAB 10:18
PROVIDERS: PCP Nurse Practitioner; Visit Provider Student in an Organized Health Care Education/Training Program
DX: A41.01 Sepsis due to Methicillin susceptible Staphylococcus aureus (principal)
CPT/HCPCS: 80053; 85025

== ENCOUNTER 2021-10-31 15:37 | Outpatient (CLI) | payer MEDICARE, OTHER, SELFPAY ==
[2021-10-31 16:03] LABS: Basophils # 0.1 10^3/uL (0.0-0.1); Eosinophils # 0.2 10^3/uL (0.0-0.8); Eosinophils % 3.4 %; Hematocrit 39.2 % (42.0-52.0); Hemoglobin 13.1 g/dL (11.7-16.6); Lymphocytes # 1.4 10^3/uL (0.8-4.8); Lymphocytes % 22.5 %; Mean Corpuscular HGB Conc 33.4 g/dL (30.0-36.0); Mean Corpuscular Volume 95.6 fl (80-94); Mean Platelet Volume 10.5 fL (7.4-10.4); Monocytes # 0.5 10^3/uL (0.2-0.9); Monocytes % 8.1 %; Neutrophils # 3.99 10^3/uL (1.8-7.7); Neutrophils % 64.7 %; Nucleated Red Blood Cells % 0 %; Platelet Count 133 10^3/cmm (130-400); White Blood Count 6.2 10^3/uL (4.0-10.0)
[2021-10-31 16:16] LABS: Alanine Aminotransferase 13 U/L (0-41); Albumin Level 3.8 g/dL (3.5-5.2); Alkaline Phosphatase 56 IU/L (40-130); Anion Gap 15.5 (5-19); Aspartate Amino Transferase 25 U/L (0-40); Blood Urea Nitrogen 10 mg/dL (8-23); Carbon Dioxide 23 mmol/L (22-29); Chloride 102 mmol/L (98-107); Glucose 102 mg/dL (65-115); Osmolality Calculated 281 mOsm/kg (285-295); Potassium 4.5 mmol/L (3.5-5.1); Sodium 136 mmol/L (136-145); Total Bilirubin 0.4 mg/dL (0.15-1.2); Total Protein 5.8 g/dL (6.6-8.7)
== END 2021-10-31 15:38 | disposition home or self-care (01) ==
PROVIDERS: PCP Nurse Practitioner; Visit Provider Student in an Organized Health Care Education/Training Program
DX: A41.01 Sepsis due to Methicillin susceptible Staphylococcus aureus (principal)
CPT/HCPCS: 80053; 85025

== ENCOUNTER 2021-11-07 13:06 | Outpatient (CLI) | payer MEDICARE, OTHER, SELFPAY ==
[2021-11-07 13:18] LABS: Hematocrit 38.2 % (42.0-52.0); Hemoglobin 12.7 g/dL (11.7-16.6); Mean Corpuscular HGB Conc 33.2 g/dL (30.0-36.0); Mean Corpuscular Hemoglobin 31.8 pg (28.0-34.0); Mean Corpuscular Volume 95.5 fl (80-94); Mean Platelet Volume 10.7 fL (7.4-10.4); Platelet Count 128 10^3/cmm (130-400); Red Cell Distribution Width 12.7 % (12.1-15.1); White Blood Count 4.8 10^3/uL (4.0-10.0)
[2021-11-07 14:03] LABS: Absolute Eosinophils 0.2 10^3/cmm (0.0-0.7); Absolute Neutrophil 3.4 10^3/cmm (1.4-6.5); Absolute Segmented Neutrophil 3.3 10/cmm (1.6-7.1); Band Neutrophils Absolute 0.1 10^3/cmm (0.0-1.2); Eosinophils 5 %; Lymphocytes 19 %; Lymphocytes Absolute 0.9 10^3/cmm (1.2-3.4); Monocytes Absolute 0.2 10^3/cmm (0.1-0.6); Platelet Estimate Decreased (Normal); Segmented Neutrophils 68 %; Total Cells Counted 100 (0-100)
== END 2021-11-07 13:07 | disposition home or self-care (01) ==
PROVIDERS: PCP Nurse Practitioner; Visit Provider Student in an Organized Health Care Education/Training Program
DX: A41.01 Sepsis due to Methicillin susceptible Staphylococcus aureus (principal)
CPT/HCPCS: 85007; 85027

== ENCOUNTER 2021-11-18 13:29 | Outpatient (CLI) | payer MEDICARE, OTHER, SELFPAY | END 2021-11-18 13:30 | disposition home or self-care (01) | PROVIDERS: PCP Nurse Practitioner; Visit Provider Surgery | DX: I96 Gangrene, not elsewhere classified (principal); L89.313 Pressure ulcer of right buttock, stage 3; I89.0 Lymphedema, not elsewhere classified; I10 Essential (primary) hypertension | CPT/HCPCS: 11042; 99213 ==

== ENCOUNTER 2021-11-21 14:38 | Outpatient (CLI) | payer MEDICARE, OTHER, SELFPAY ==
[2021-11-21 14:56] LABS: Basophils % 0.7 %; Eosinophils # 0.2 10^3/uL (0.0-0.8); Eosinophils % 3.6 %; Hematocrit 40.6 % (42.0-52.0); Hemoglobin 13.6 g/dL (11.7-16.6); Lymphocytes # 1.5 10^3/uL (0.8-4.8); Lymphocytes % 26.4 %; Mean Corpuscular HGB Conc 33.5 g/dL (30.0-36.0); Mean Corpuscular Hemoglobin 31.3 pg (28.0-34.0); Mean Corpuscular Volume 93.5 fl (80-94); Mean Platelet Volume 9.4 fL (7.4-10.4); Monocytes # 0.5 10^3/uL (0.2-0.9); Monocytes % 9.8 %; Neutrophils # 3.25 10^3/uL (1.8-7.7); Neutrophils % 59.3 %; Nucleated Red Blood Cells % 0 %; Platelet Count 178 10^3/cmm (130-400); Red Blood Count 4.34 10^6/uL (4.1-5.3); Red Cell Distribution Width 12.4 % (12.1-15.1); White Blood Count 5.5 10^3/uL (4.0-10.0)
[2021-11-21 15:24] LABS: Alanine Aminotransferase 14 U/L (0-41); Albumin Level 4.1 g/dL (3.5-5.2); Alkaline Phosphatase 53 IU/L (40-130); Anion Gap 17.2 (5-19); Aspartate Amino Transferase 19 U/L (0-40); Blood Urea Nitrogen 14 mg/dL (8-23); Calcium 9.1 mg/dL (8.5-10.5); Carbon Dioxide 21 mmol/L (22-29); Chloride 102 mmol/L (98-107); Globulin 1.7 g/dL (1.3-4.6); Glucose 81 mg/dL (65-115); Osmolality Calculated 282 mOsm/kg (285-295); Potassium 4.2 mmol/L (3.5-5.1); Prealbumin 28.9 mg/dL (20-40); Sodium 136 mmol/L (136-145); Total Bilirubin 0.6 mg/dL (0.15-1.2); Total Protein 5.8 g/dL (6.6-8.7)
== END 2021-11-21 14:39 | disposition home or self-care (01) ==
LOC: LAB 14:44
PROVIDERS: PCP Nurse Practitioner; Visit Provider Surgery
DX: A41.01 Sepsis due to Methicillin susceptible Staphylococcus aureus (principal)
CPT/HCPCS: 80053; 84134; 85025

== ENCOUNTER 2021-11-25 14:27 | Outpatient (CLI) | payer MEDICARE, OTHER, SELFPAY | END 2021-11-25 14:28 | disposition home or self-care (01) | LOC: WOUND 14:28 | PROVIDERS: PCP Nurse Practitioner; Visit Provider Surgery | DX: I96 Gangrene, not elsewhere classified (principal); L89.313 Pressure ulcer of right buttock, stage 3; I89.0 Lymphedema, not elsewhere classified; I10 Essential (primary) hypertension | CPT/HCPCS: 11042 ==

== ENCOUNTER 2021-12-06 14:47 | Outpatient (CLI) | payer MEDICARE, OTHER, SELFPAY ==
[2021-12-06 15:50] LABS: C Reactive Protein 0.4 mg/L (0.0-4.9)
[2021-12-06 16:05] LABS: Erythrocyte Sedimentation Rate < 1 mm/hr (0-10)
== END 2021-12-06 14:48 | disposition home or self-care (01) ==
LOC: LAB 14:52
PROVIDERS: PCP Nurse Practitioner; Visit Provider Orthopaedic Surgery
DX: A41.01 Sepsis due to Methicillin susceptible Staphylococcus aureus (principal); B95.61 Methicillin susceptible Staphylococcus aureus infection as the cause of diseases classified elsewhere; I33.0 Acute and subacute infective endocarditis; M46.47 Discitis, unspecified, lumbosacral region
CPT/HCPCS: 36415; 85651; 86140

== ENCOUNTER 2021-12-09 12:56 | Outpatient (CLI) | payer MEDICARE, OTHER, SELFPAY | END 2021-12-09 12:57 | disposition home or self-care (01) | LOC: WOUND 12:57 | PROVIDERS: PCP Nurse Practitioner; Visit Provider Surgery | DX: Z09 Encounter for follow-up examination after completed treatment for conditions other than malignant neoplasm (principal) | CPT/HCPCS: 99212 ==

== ENCOUNTER 2022-02-01 14:32 | Outpatient (CLI) | payer MEDICARE, OTHER, SELFPAY ==
--- NOTE | 2022-02-01 14:51 | XRR_ITS ---
PROCEDURE INFORMATION: Exam: XR Chest Exam date and time: 02/01/2022 3:08 PM Age: 76 years old Clinical indication: Shortness of breath; Patient HX: Checking for pnemonia, cough and SOB; Additional info: Shortness of breath TECHNIQUE: Imaging protocol: XR of the chest. Views: 2 views. COMPARISON: CR XR chest 1V portable [id number] 09/26/2021 12:42 PM FINDINGS: Tubes, catheters and devices: Previously noted left arm PICC line has been removed. Lungs: Ill-defined bilateral basilar opacities suggesting atelectasis however follow-up should be obtained to exclude developing pneumonia. Stable blunting of left CP angle suggesting small pleural effusion/pleuroparenchymal thickening. However there is new blunting of right CP angle suggesting small new right pleural effusion. Flattening of diaphragm is present suggesting hyperinflation/possible COPD. Pleural spaces: See Lungs finding. Heart/Mediastinum: No cardiomegaly. Bones/joints: No acute findings. XR/XR chest 2V* [id number] IMPRESSION: 1. Ill-defined bibasilar opacities and blunting of CP angles as described above. Follow-up should be obtained. 2. Hyperinflation/possible COPD.
== END 2022-02-01 14:33 | disposition home or self-care (01) ==
PROVIDERS: PCP Nurse Practitioner; Visit Provider Nurse Practitioner Family
DX: R06.02 Shortness of breath (principal)
CPT/HCPCS: 71046

== ENCOUNTER 2022-04-14 14:40 | Outpatient (CLI) | payer MEDICARE, OTHER, SELFPAY ==
--- NOTE | 2022-04-14 15:15 | MR_ITS ---
WS: [id number] MRI LUMBAR SPINE NONCONTRAST HISTORY: M46.47 Discitis, unspecified, lumbosacral region COMPARISON: 09/16/2021 TECHNIQUE: Sagittal and axial multisequence imaging is submitted. Severe spondylitic changes in the cervical and thoracic spine. Osteophytosis and disc disease. Straightening and curvature of the normal lumbar lordosis. L3 retrolisthesis by 6 mm. Disc spaces are severely narrowed. There are large endplate osteophytes at all levels with disc space narrowing and facet arthritis. Conus terminates normally at L1. L1-L2: Diffuse moderate annular disc bulging with osteophytic ridging, ligamentum flavum and facet ar thritis. Increased epidural fat. Mild central with moderate foraminal stenosis. L2-L3: Diffuse annular disc bulging with ligamentum flavum and facet arthritis. Asymmetric disc bulgi ng. There is at least moderate central with bilateral subarticular recess and foraminal stenosis. Sim ilar to the prior study. L3-L4: Diffuse osteophytic ridging with disc protrusions and osteophytes encroaching into the thecal sac and subarticular recesses and foramina. Moderate central with severe bilateral subarticular reces s and foraminal stenosis. L4-L5: Diffuse osteophytic ridging. Asymmetric disc bulging extends to the LEFT. Severe facet arthrit is with central and foraminal stenosis and subarticular recess stenosis. Large postsurgical laminecto my defect on the LEFT. L5-S1: Annular disc bulging with a central disc protrusion and osteophytic ridging. Moderate central with bilateral subarticular recess and foraminal stenosis. Most significant stenosis on the LEFT. No significant amount of marrow edema in the vertebral bodies. Significant encroachment upon the nerv e roots throughout the thecal sac at multiple levels. MR/MR lumbar spine wo con* [id number] IMPRESSION: 1. Severe multilevel stenoses throughout the lumbar spine as seen on the prior study of 09/16/2021. Marked facet joint arthritis with vertebral body osteophy chasity and disc protrusions. 2. Since the prior study a large LEFT hemilaminectomy defect at L4-5. 3. Moderate central with severe bilateral subarticular recess and foraminal st enosis at L3-4. 4. Severe central, foraminal and subarticular recess stenosis at L4-5. 5. Moderate central with bilateral subarticular recess and foraminal stenosis at L5-S1. 6. Moderate central with bilateral subarticular recess and foraminal stenosis at L2-3.
== END 2022-04-14 14:41 | disposition home or self-care (01) ==
LOC: RAD 14:41
PROVIDERS: PCP Nurse Practitioner; Visit Provider Orthopaedic Surgery
DX: M46.47 Discitis, unspecified, lumbosacral region (principal); M48.061 Spinal stenosis, lumbar region without neurogenic claudication; M48.07 Spinal stenosis, lumbosacral region
CPT/HCPCS: 72148

== ENCOUNTER → 2022-06-28 15:34 | Outpatient (BNVA) | payer MEDICARE, OTHER, SELFPAY | PROVIDERS: PCP Nurse Practitioner Family; Visit Provider Internal Medicine Cardiovascular Disease | DX: M79.89 Other specified soft tissue disorders (principal); I10 Essential (primary) hypertension; R06.02 Shortness of breath; Z79.01 Long term (current) use of anticoagulants; S34.3XXA Injury of cauda equina, initial encounter | CPT/HCPCS: 36415; 80048; 83880; 85025; 99204 ==

== ENCOUNTER 2022-08-02 12:03 | Outpatient (CLI) | payer MEDICARE, OTHER, SELFPAY ==
--- NOTE | 2022-08-02 12:00 | USCV_ITS ---
Gómez Stevens Age: 77 Gender: M : 1945 Exam Date: 08/02/2022 12:30 Ordering Phys: Lacey Zaldivar MD ([email or web address]) Technologist: TRUONG [place] [facility] [place]: H[place]ORY: PROCEDURES: FINDINGS: significant venous reflux was noted in the popliteal vein on the right side, at 2380 ms The veins were found to be easily compressible with spontaneous blood flow. Non pulsatile flow pattern. Multiple echolucent areas are noted in the subcutaneous plane of the below-knee levels on both lower extremities CONCLUSIONS 1. No evidence of DVT in the above-mentioned identifiable veins. 2. Significant venous reflux of greater than 1000 ms was noted at the right popliteal vein 3. No significant reflux were noted in the superficial veins on either side. 4. Features of fluid retention/edema, bilaterally, at the below-knee levels. Dr Lacey Zaldivar MD FACC (Electronically Signed) Final Date: 04 August 2022 09:06 S
== END 2022-08-02 12:04 | disposition home or self-care (01) ==
PROVIDERS: PCP Nurse Practitioner Family; Visit Provider Internal Medicine Cardiovascular Disease
DX: M79.89 Other specified soft tissue disorders (principal)
CPT/HCPCS: 93970

== ENCOUNTER 2022-08-28 10:47 | Outpatient (CLI) | payer MEDICARE, OTHER, SELFPAY ==
--- NOTE | 2022-08-28 11:00 | USCV_ITS ---
Gómez Stevens Age: 77 Gender: M : 1945 Exam Date: 08/28/2022 11:34 Ordering Phys: Lacey Zaldivar MD ([email or web address]) Technologist: Isamar Kendall Exam Location: [facility] [place] Indication: Hypertension BP: 187 / 116 HR: 53 Rhythm: Sinus Technical Quality: Adequate MEASUREMENTS (Male / Female) Normal Values 2D ECHO LV Diastolic Diameter PLAX 3.5 cm 4.2 - 5.9 / 3.9 - 5.3 cm LV Systolic Diameter PLAX 4.3 cm IVS Diastolic Thickness 1.4 cm 0.6 - 1.0 / 0.6 - 0.9 cm IVS Systolic Thickness 1.8 cm LVPW Diastolic Thickness 3.9 cm 0.6 - 1.0 / 0.6 - 0.9 cm LVPW Systolic Thickness 2.3 cm LVOT Diameter 2.2 cm LV Ejection Fraction 2D Teich 38.6 % LV Ejection Fraction MOD 2C 44.0 % LV Ejection Fraction 2C AL 49.8 % LA Diameter 4.1 cm LA Width 4.5 cm LA Height 6.6 cm RA Width 3.6 cm RA Height 5.0 cm Aorta at Sinotubular Diameter 2.8 cm IVC Diameter 2.5 cm M-MODE MV E Point Septal Separation 0.9 cm DOPPLER AV Peak Velocity 110.0 cm/s LVOT Peak Velocity 94.0 cm/s AV Area Cont Eq vti 3.4 cm squared AV Area Cont Eq pk 3.2 cm squared MV Peak Velocity 130.0 cm/s MV Area PHT 3.4 cm squared Mitral E to A Ratio 1.6 MV E' Velocity 56.5 cm/s Mitral E to MV E' Ratio 12.6 Mitral E to LV E' Lateral Ratio 15.4 Mitral E to LV E' Septal Ratio 10.7 TR Peak Velocity 222.0 cm/s TR Peak Gradient 19.7 mmHg Right Atrial Pressure 3.0 mmHg Pulmonary Artery Systolic Pressu 22.7 mmHg PV Peak Velocity 69.0 cm/s RV Acceleration Time 0.2 s RV Ejection Time 0.4 s RV AcT/ET 0.4 FINDINGS Left Ventricle Normal left ventricular size and systolic function, EF 55 %. Grade III/IV diastolic dysfunction (restrictive filling pattern), severely elevated filling pressures. Grade III/IV diastolic dysfunction (restrictive filling pattern), severely elevated filling pressures. Right Ventricle The right ventricle is normal in size and function. Right Atrium The right atrium is normal in size. Left Atrium Mildly increased left atrial size. Mitral Valve Moderate mitral valve regurgitation. Aortic Valve No gross abnormalities noted Tricuspid Valve No gross abnormalities noted Pulmonic Valve No gross abnormalities noted Pericardium Trivial pericardial effusion. Aorta Normal ascending aorta dimension. IVC Normal inferior vena cava. CONCLUSIONS Normal left ventricular size and systolic function, EF 55 %. Grade III/IV diastolic dysfunction (restrictive filling pattern), severely elevated filling pressures. Grade III/IV diastolic dysfunction (restrictive filling pattern), severely elevated filling pressures. Moderate mitral valve regurgitation. Mildly increased left atrial size. Trace of pericardial effusion Estimated pulmonary artery peak systolic pressure was 28 mmHg There are no intracardiac masses. Compared to the study from 09/22/2021, there is development of mitral regurgitation and some worsening of the left-ventricular diastolic function Dr Lacey Zaldivar MD FACC (Electronically Signed) Final Date: 28 August 2022 16:03 S
== END 2022-08-28 10:48 | disposition home or self-care (01) ==
LOC: RAD 10:48
PROVIDERS: PCP Nurse Practitioner Family; Visit Provider Internal Medicine Cardiovascular Disease
DX: I50.9 Heart failure, unspecified (principal); I51.89 Other ill-defined heart diseases; I34.0 Nonrheumatic mitral (valve) insufficiency
CPT/HCPCS: 93306

== ENCOUNTER → 2022-11-16 13:50 | Outpatient (BNVA) | payer MEDICARE, OTHER, SELFPAY | PROVIDERS: PCP Nurse Practitioner Family; Visit Provider Nurse Practitioner Family | DX: I11.0 Hypertensive heart disease with heart failure (principal); I50.30 Unspecified diastolic (congestive) heart failure | CPT/HCPCS: 99214 ==

== ENCOUNTER → 2023-10-23 10:54 | Outpatient (BNVA) | payer MEDICARE, OTHER, SELFPAY | PROVIDERS: PCP Nurse Practitioner Family; Visit Provider Internal Medicine Cardiovascular Disease | DX: I11.0 Hypertensive heart disease with heart failure (principal); I50.32 Chronic diastolic (congestive) heart failure; I34.0 Nonrheumatic mitral (valve) insufficiency | CPT/HCPCS: 36415; 80048; 83880; 99214 ==

== ENCOUNTER → 2024-03-07 12:16 | Outpatient (BNVA) | payer MEDICARE, OTHER, SELFPAY | PROVIDERS: PCP Nurse Practitioner Family; Visit Provider Registered Nurse Neonatal Intensive Care | DX: R50.9 Fever, unspecified (principal); N39.0 Urinary tract infection, site not specified | CPT/HCPCS: 81000; 87077; 87086; 87184 ==

== ENCOUNTER → 2024-03-22 11:31 | Outpatient (BNVA) | payer MEDICARE, OTHER, SELFPAY | PROVIDERS: PCP Nurse Practitioner Family; Visit Provider Emergency Medicine | DX: R39.9 Unspecified symptoms and signs involving the genitourinary system (principal); N10 Acute pyelonephritis | CPT/HCPCS: 81000; 87077; 87086; 87184 ==

== ENCOUNTER → 2024-04-22 09:56 | Outpatient (BNVA) | payer MEDICARE, OTHER, SELFPAY | PROVIDERS: PCP Nurse Practitioner Family; Visit Provider Internal Medicine Cardiovascular Disease | DX: I11.0 Hypertensive heart disease with heart failure (principal); I50.32 Chronic diastolic (congestive) heart failure; I34.0 Nonrheumatic mitral (valve) insufficiency; R06.02 Shortness of breath | CPT/HCPCS: 99214 ==

== ENCOUNTER → 2025-06-19 10:29 | Outpatient (BNVA) | payer MEDICARE, OTHER, SELFPAY | PROVIDERS: PCP Nurse Practitioner Family; Visit Provider Internal Medicine Cardiovascular Disease | DX: I11.0 Hypertensive heart disease with heart failure (principal); I50.30 Unspecified diastolic (congestive) heart failure; R06.09 Other forms of dyspnea; I34.0 Nonrheumatic mitral (valve) insufficiency; R06.02 Shortness of breath | CPT/HCPCS: 36415; 80048; 83880; 99214 ==

== ENCOUNTER 2025-07-23 13:04 | Outpatient (CLI) | payer MEDICARE, OTHER, SELFPAY ==
--- NOTE | 2025-07-23 13:30 | USCV_ITS ---
Gómez Stevens Age: 80 Gender: M : 1945 Exam Date: 07/23/2025 13:29 Ordering Phys: Lacey Zaldivar MD ([email or web address]) Technologist: Exam Location: [facility] – [place] Indication: cp sob BP: 160 / 80 HR: 50 Rhythm: Sinus Technical Quality: Adequate MEASUREMENTS (Male / Female) Normal Values 2D ECHO LV Diastolic Diameter PLAX 5.8 cm 4.2 - 5.9 / 3.9 - 5.3 cm IVS Diastolic Thickness 1.3 cm 0.6 - 1.0 / 0.6 - 0.9 cm IVS Systolic Thickness 1.8 cm LVPW Diastolic Thickness 1.5 cm 0.6 - 1.0 / 0.6 - 0.9 cm LVPW Systolic Thickness 1.6 cm LVOT Diameter 2.3 cm LV Ejection Fraction 2D Teich 65.5 % LV Ejection Fraction MOD 4C 68.0 % LV Ejection Fraction MOD 2C 59.3 % LV Ejection Fraction 2C AL 57.5 % LA Diameter 3.6 cm RA Systolic Volume 4C AL 60.5 ml RA Systolic Volume 4C MOD 56.3 ml LA Sys Volume AL 81.8 cm cubed LA Sys Volume Index AL 35.9 cm cubed/m squared Aorta at Sinotubular Diameter 3.1 cm M-MODE LA Ao Ratio MM 1.2 AV Cusp Separation MM 2.2 cm DOPPLER AV Peak Velocity 134.0 cm/s LVOT Peak Velocity 81.0 cm/s AV Area Cont Eq vti 3.0 cm squared AV Area Cont Eq pk 2.5 cm squared MV Area PHT 4.2 cm squared TV Peak Velocity 214.5 cm/s TR Peak Velocity 218.0 cm/s TR Peak Gradient 19.0 mmHg TV Peak E Velocity 84.0 cm/s PV Peak Velocity 95.0 cm/s FINDINGS Left Ventricle Normal left ventricular size and systolic function, EF 59%.no regional wall motion abnormalities. Right Ventricle Normal right ventricular size and systolic function. Right Atrium Normal right atrial size. Left Atrium Normal left atrial size. Mitral Valve Mild mitral valve regurgitation. Aortic Valve No gross abnormalities noted Tricuspid Valve Mild tricuspid valve regurgitation. Estimated pulmonary artery peak systolic pressure 22 mmHg Pulmonic Valve Pericardium No pericardial effusion. Aorta Normal aortic annulus size. IVC Inferior vena cava not visualized. CONCLUSIONS Normal left ventricular size and systolic function, EF 59%.no regional wall motion abnormalities. Mild mitral valve regurgitation. Mild tricuspid valve regurgitation. Estimated pulmonary artery peak systolic pressure 22 mmHg. There is no pericardial effusion. There are no intracardiac masses. Compared to the previous study from 08/28/2022 the mitral regurgitation appears to be less severe. Dr Lacey Zaldivar MD [facility] (Electronically Signed) Final Date: 28 July 2025 19:02 S
== END 2025-07-23 13:05 | disposition home or self-care (01) ==
LOC: RAD 13:07
PROVIDERS: PCP Nurse Practitioner Family; Visit Provider Internal Medicine Cardiovascular Disease
DX: R06.09 Other forms of dyspnea (principal)
CPT/HCPCS: 93306